=== PATIENT | female | born 1965 | race Caucasian/White ===

== ENCOUNTER 2021-07-30 01:11 | Inpatient (IN) ==
[2021-07-30] MEDS ORDERED: dexAMETHasone**PF** 10 MG/ML VIAL IV ONE (01:30)
[2021-07-30] MEDS ORDERED: SODIUM CHLORIDE 0.9% 1000ML 1,000 ML IV ONE (01:32)
[2021-07-30] MEDS ORDERED: cefTRIAXone SODIUM 2,000 MG/70 ML BAG IV STA (01:32)
[2021-07-30] MEDS ORDERED: ALBUTEROL HFA 8 GM INHALER INH ONE (01:33)
[2021-07-30] MEDS ORDERED: MAGNESIUM SULFATE / D5W 1 GM/100 ML BAG IV ONE (01:36)
[2021-07-30 01:41] LABS: Hematocrit (blood only) 38.9 % (37-47); Immature Granulocytes % (auto) 1.1 %; Lymphocytes # (auto) 0.74 K/uL (1.2-3.4); Lymphocytes % (auto) 8.1 %; Mean Corpuscular Hemoglobin 30.2 pg (25-34); Mean Corpuscular Hgb Conc 33.4 g/dL (32-36); Mean Corpuscular Volume 90.5 fL (80-100); Monocytes % (auto) 7.6 %; Neutrophils # (auto) 7.63 K/uL (1.4-6.5); Neutrophils % (auto) 83.2 %; Platelet Count 276 K/uL (130-400); RDW Coefficient of Variation 13.1 % (11.5-14.5); RDW Standard Deviation 43.5 fL (36.4-46.3); White Blood Count 9.17 K/uL (4.8-10.8)
--- NOTE | 2021-07-30 01:41 | Emergency Department Note ---
History of Present Illness General Chief complaint: Shortness of Breath/Dyspnea Stated complaint: + COVID/SHORTNESS OF BREATH Time Seen by Provider: 07/30/21 01:23 History of Present Illness Maximum Pain Intensity: 9 This 56-year-old unvaccinated female with asthma presents to the ER complaining of worsening Covid symptoms who has been sick for 10 days Location: Generalized Quality: Hard to breathe Severity: Severe Duration: Past 2 days Timing: Started few days ago Context: Symptoms got worse and patient came in Modifying factors: better with rest; worse with activity Patient states she does not smoke. Patient complains of fever, chills, cough, congestion and feeling pretty miserable. Home Medications Medication Instructions Recorded Confirmed Type Saccharomyces boulardii 250 mg 250 mg PO BID #20 cap 07/24/21 07/30/21 Rx capsule (Florastor) albuterol sulfate 90 mcg/actuation 2 puff INHALATION Q4 PRN 07/24/21 07/30/21 History aerosol inhaler cefdinir 300 mg capsule 300 mg PO BID 7 Days #14 cap 07/24/21 07/30/21 Rx dexamethasone 6 mg tablet 6 mg PO DAILY #10 tab 07/24/21 07/30/21 Rx loratadine-pseudoephedrine ER 10 1 tab PO DAILY 07/24/21 07/30/21 History mg-240 mg tablet,extended [id number] (Allergy Relief and Nasal Decongestant) montelukast 10 mg tablet 10 mg PO DAILY 07/24/21 07/30/21 History multivitamin (Multiple Vitamins) 1 tab PO DAILY 07/24/21 07/30/21 History omeprazole 40 mg capsule,delayed 40 mg PO DAILYBB 07/24/21 07/30/21 History release oxybutynin chloride 5 mg tablet 5 mg PO BID 07/24/21 07/30/21 History Allergies Allergy/AdvReac Type Severity Reaction Status Date / Time sulfamethoxazole [Bactrim] Allergy Intermediate rash and Verified 07/30/21 01:24 upset stomach trimethoprim [Bactrim] Allergy Intermediate rash and Verified 07/30/21 01:24 upset stomach Penicillins Allergy Mild Unknown Unverified 07/30/21 01:24 Past Med/Surg History Medical History Asthma GERD (gastroesophageal reflux disease) Family History Other Family history non-contributory Social History Smoking Status: Former smoker Tobacco Type: Cigarettes Preferred Language: Latvian Feels Safe at Home: Yes Review of Systems A total of 10 systems reviewed and were otherwise negative Physical Exam Vital Signs Vital Signs - 24 hr 07/30/21 01:14 07/30/21 02:10 07/30/21 02:12 Temperature 36.9 C Temperature Source Oral Pulse Rate 72 76 Pulse Rate [Apical] 70 Pulse Rate from SpO2 Sensor 75 Respiratory Rate 24 23 28 H Respiratory Effort / Characteristics Respiratory Pattern Blood Pressure 121/73 Blood Pressure [Right Arm] 132/79 Blood Pressure Mean 89 Blood Pressure Mean [Right Arm] 96 Blood Pressure Position [Right Arm] Lying Pulse Oximetry 82 L 95 94 Oxygen Delivery Method Room Air Oxymask Oxygen Flow Rate 6 Sepsis Recent Fever Within 48 Hours Yes Sepsis New/Unexplained Change in Mental Status No Sepsis Action Taken by Nursing No Action Required 07/30/21 02:30 07/30/21 02:52 07/30/21 02:57 Temperature Temperature Source Pulse Rate 73 Pulse Rate [Apical] Pulse Rate from SpO2 Sensor 73 Respiratory Rate 28 H Respiratory Effort / Characteristics Labored Short of Breath SOB on Exertion Respiratory Pattern Tachypnea Blood Pressure 134/85 Blood Pressure [Right Arm] Blood Pressure Mean 101 Blood Pressure Mean [Right Arm] Blood Pressure Position [Right Arm] Pulse Oximetry 97 95 Oxygen Delivery Method Oxymask Oxymask Oxygen Flow Rate 6 6 Sepsis Recent Fever Within 48 Hours Sepsis New/Unexplained Change in Mental Status Sepsis Action Taken by Nursing 07/30/21 03:00 07/30/21 03:25 07/30/21 03:30 Temperature Temperature Source Pulse Rate 71 89 Pulse Rate [Apical] Pulse Rate from SpO2 Sensor 71 87 Respiratory Rate 32 H 28 H Respiratory Effort / Characteristics Short of Breath SOB on Exertion Respiratory Pattern Blood Pressure 133/77 130/76 Blood Pressure [Right Arm] Blood Pressure Mean 95 94 Blood Pressure Mean [Right Arm] Blood Pressure Position [Right Arm] Pulse Oximetry 96 95 94 Oxygen Delivery Method Oxymask Oxygen Flow Rate 6 4 Sepsis Recent Fever Within 48 Hours Sepsis New/Unexplained Change in Mental Status Sepsis Action Taken by Nursing VITALS: Vitals are noted on the nurse's note and reviewed by myself. Vital signs hypoxic on room air but improved on facemask. GENERAL: White female ill-appearing working to breathe with Covid SKIN: The skin was without rashes, erythema, edema, or bruising. There is no tenting of the skin. Capillary reflex less than 2 seconds. HEAD: Normocephalic atraumatic. EARS: External auditory canals clear, tympanic membranes pearly tabor without erythema or effusion bilaterally. EYES: Pupils equal round and reactive to light and accommodation. Conjunctivae without injection, sclerae without icterus. Extraocular movements intact. NOSE: Patent, turbinates without inflammation or discharge. MOUTH: Mucous membranes moist. Pharynx without erythema or exudate. Uvula midline. Airway patent. Tongue does not deviate. NECK: Supple without nuchal rigidity. No lymphadenopathy. No thyromegaly. Cervical spine is nontender. No JVD. HEART: Regular rate and rhythm LUNGS: Mild diffuse end expiratory wheezes, No retractions or accessory muscle use. ABDOMEN: Positive bowel sounds x 4. Normal tympanic percussion. Soft, nontender, without masses or organomegaly. Boyer sign negative. No guarding or rebound tenderness. No CVA tenderness MUSCULOSKELETAL: No muscle atrophy, erythema, or edema noted. NEURO: Patient was alert and oriented to person place and time. Normal sensation to light and sharp touch. No focal neurological deficits. Course Administered Medications Discontinued Medications Albuterol (Albuterol Hfa 8 Gm Inhaler) 2 puffs INH NOW ONE Stop: 07/30/21 01:34 Last Admin: 07/30/21 02:07 Dose: 2 puffs Documented by: [id number] Dexamethasone Sodium Phosphate (DexamethasonePf 10 Mg/Ml Vial) 6 mg IV NOW ONE Stop: 07/30/21 01:31 Last Admin: 07/30/21 02:10 Dose: 6 mg Documented by: [id number] Sodium Chloride (Nss 1000ml) 1,000 mls @ 999 mls/hr IV .Q1H1M ONE Stop: 07/30/21 02:32 Last Infusion: 07/30/21 03:19 Dose: 0 mls/hr Documented by: [id number] Admin: 07/30/21 02:06 Dose: 999 mls/hr Documented by: [id number] Ceftriaxone Sodium (Rocephin) 2,000 mg in 70 mls @ 140 mls/hr IV NOW STA Stop: 07/30/21 02:01 Last Infusion: 07/30/21 02:58 Dose: 0 mls/hr Documented by: [id number] Admin: 07/30/21 02:07 Dose: 140 mls/hr Documented by: [id number] Magnesium Sulfate/Dextrose (Magnesium Sulfate / D5w) 1 gm in 100 mls @ 50 mls/hr IV ONE ONE Stop: 07/30/21 03:35 Last Admin: 07/30/21 02:08 Dose: 50 mls/hr Documented by: [id number] Potassium Chloride (Potassium Chloride Crtab 20 Meq Tabcr) 20 meq PO NOW STA Stop: 07/30/21 02:52 Last Admin: 07/30/21 03:18 Dose: 20 meq Documented by: [id number] Medical Decision Making Medical Records Attestation: I reviewed the patient's medical records. Home Medications Current Medication List: was personally reviewed by me Laboratory Data Attestation: I reviewed the patient's lab results. Result diagrams: 07/30/21 01:24 07/30/21 01:24 Lab Results 07/30/21 07/30/21 07/30/21 Range/Units 01:24 01:24 01:24 WBC 9.17 (4.8-10.8) K/uL RBC 4.30 (4.2-5.4) M/uL Hgb 13.0 (12.0-16.0) g/dL Hct 38.9 (37-47) % MCV 90.5 (80-100) fL MCH 30.2 (25-34) pg MCHC 33.4 (32-36) g/dL RDW Std Deviation 43.5 (36.4-46.3) fL RDW Coeff of Evelyn 13.1 (11.5-14.5) % Plt Count 276 (130-400) K/uL MPV 10.0 (7.4-10.4) fL Immature Gran % (Auto) 1.1 % Neut % (Auto) 83.2 % Lymph % (Auto) 8.1 % Wake % (Auto) 7.6 % Eos % (Auto) 0.0 % Baso % (Auto) 0.0 % Neut # (Auto) 7.63 H (1.4-6.5) K/uL Lymph # (Auto) 0.74 L (1.2-3.4) K/uL [place] # (Auto) 0.70 H (0.11-0.59) K/uL Eos # (Auto) 0.00 (0-0.5) K/uL Baso # (Auto) 0.00 (0-0.2) K/uL Immature Gran # (Auto) 0.10 H (0.00-0.02) K/uL PT 10.3 (9.0-12.0) Seconds INR 1.0 (0.9-1.1) APTT 28.3 (21.0-31.0) Seconds PTT Ratio 1.1 ABG pH (7.35-7.45) ABG pCO2 (35-46) mmHg ABG pO2 (80-95) mmHg ABG HCO3 (19-24) mmol/L ABG O2 Saturation (90-95) % ABG Base Excess (-9-1.8) mEq/L Federico Test (Pos) Barometric Pressure mm/Hg Oxygen Given Sodium 130 L (136-145) mmol/L Potassium 3.8 (3.5-5.1) mmol/L Chloride 96 L (98-107) mmol/L Carbon Dioxide 25 (21-32) mmol/L Anion Gap 9.0 (3-11) BUN 21 H (7-18) mg/dl Creatinine 0.90 (0.6-1.2) mg/dl Est Cr Clr Drug Dosing 78.7 ml/min Est GFR ( Amer) 81.7 ml/min Est GFR (Non-Af Amer) 70.5 ml/min BUN/Creatinine Ratio 23.2 H (10-20) Glucose 130 H (70-99) mg/dl Lactate (0.4-2.0) mmol/L Calcium 8.2 L (8.5-10.1) mg/dl Magnesium 2.2 (1.8-2.4) mg/dl Total Bilirubin 0.4 (0.2-1) mg/dl AST 43 H (15-37) U/L ALT 39 (12-78) U/L Alkaline Phosphatase 47 (45-117) U/L Troponin I < 0.015 (0-0.045) ng/ml NT-Pro-B Natriuret Pep 398 (0-900) pg/ml Total Protein 7.2 (6.4-8.2) gm/dl Albumin 2.6 L (3.4-5.0) gm/dl Globulin 4.6 H (2.5-4.0) gm/dl Albumin/Globulin Ratio 0.6 L (0.9-2) Procalcitonin (0-0.5) ng/ml TSH 0.514 (0.300-4.500) uIu/ml COVID-19 Eval Order 07/30/21 07/30/21 07/30/21 Range/Units 01:24 02:09 02:09 WBC (4.8-10.8) K/uL RBC (4.2-5.4) M/uL Hgb (12.0-16.0) g/dL Hct (37-47) % MCV (80-100) fL MCH (25-34) pg MCHC (32-36) g/dL RDW Std Deviation (36.4-46.3) fL RDW Coeff of Evelyn (11.5-14.5) % Plt Count (130-400) K/uL MPV (7.4-10.4) fL Immature Gran % (Auto) % Neut % (Auto) % Lymph % (Auto) % [place] % (Auto) % Eos % (Auto) % Baso % (Auto) % Neut # (Auto) (1.4-6.5) K/uL Lymph # (Auto) (1.2-3.4) K/uL [place] # (Auto) (0.11-0.59) K/uL Eos # (Auto) (0-0.5) K/uL Baso # (Auto) (0-0.2) K/uL Immature Gran # (Auto) (0.00-0.02) K/uL PT (9.0-12.0) Seconds INR (0.9-1.1) APTT (21.0-31.0) Seconds PTT Ratio ABG pH (7.35-7.45) ABG pCO2 (35-46) mmHg ABG pO2 (80-95) mmHg ABG HCO3 (19-24) mmol/L ABG O2 Saturation (90-95) % ABG Base Excess (-9-1.8) mEq/L Federico Test (Pos) Barometric Pressure mm/Hg Oxygen Given Sodium (136-145) mmol/L Potassium (3.5-5.1) mmol/L Chloride (98-107) mmol/L Carbon Dioxide (21-32) mmol/L Anion Gap (3-11) BUN (7-18) mg/dl Creatinine (0.6-1.2) mg/dl Est Cr Clr Drug Dosing ml/min Est GFR ( Amer) ml/min Est GFR (Non-Af Amer) ml/min BUN/Creatinine Ratio (10-20) Glucose (70-99) mg/dl Lactate 0.7 (0.4-2.0) mmol/L Calcium (8.5-10.1) mg/dl Magnesium (1.8-2.4) mg/dl Total Bilirubin (0.2-1) mg/dl AST (15-37) U/L ALT (12-78) U/L Alkaline Phosphatase (45-117) U/L Troponin I (0-0.045) ng/ml NT-Pro-B Natriuret Pep Cancelled (0-900) pg/ml Total Protein (6.4-8.2) gm/dl Albumin (3.4-5.0) gm/dl Globulin (2.5-4.0) gm/dl Albumin/Globulin Ratio (0.9-2) Procalcitonin 0.15 (0-0.5) ng/ml TSH (0.300-4.500) uIu/ml COVID-19 Eval Order 07/30/21 07/30/21 Range/Units 02:12 03:58 WBC (4.8-10.8) K/uL RBC (4.2-5.4) M/uL Hgb (12.0-16.0) g/dL Hct (37-47) % MCV (80-100) fL MCH (25-34) pg MCHC (32-36) g/dL RDW Std Deviation (36.4-46.3) fL RDW Coeff of Evelyn (11.5-14.5) % Plt Count (130-400) K/uL MPV (7.4-10.4) fL Immature Gran % (Auto) % Neut % (Auto) % Lymph % (Auto) % [place] % (Auto) % Eos % (Auto) % Baso % (Auto) % Neut # (Auto) (1.4-6.5) K/uL Lymph # (Auto) (1.2-3.4) K/uL [place] # (Auto) (0.11-0.59) K/uL Eos # (Auto) (0-0.5) K/uL Baso # (Auto) (0-0.2) K/uL Immature Gran # (Auto) (0.00-0.02) K/uL PT (9.0-12.0) Seconds INR (0.9-1.1) APTT (21.0-31.0) Seconds PTT Ratio ABG pH 7.49 H (7.35-7.45) ABG pCO2 31 L (35-46) mmHg ABG pO2 61 L (80-95) mmHg ABG HCO3 23 (19-24) mmol/L ABG O2 Saturation 92.7 (90-95) % ABG Base Excess 0.4 (-9-1.8) mEq/L Federico Test Pos (Pos) Barometric Pressure 733.9 mm/Hg Oxygen Given 6L Sodium (136-145) mmol/L Potassium (3.5-5.1) mmol/L Chloride (98-107) mmol/L Carbon Dioxide (21-32) mmol/L Anion Gap (3-11) BUN (7-18) mg/dl Creatinine (0.6-1.2) mg/dl Est Cr Clr Drug Dosing ml/min Est GFR ( Amer) ml/min Est GFR (Non-Af Amer) ml/min BUN/Creatinine Ratio (10-20) Glucose (70-99) mg/dl Lactate (0.4-2.0) mmol/L Calcium (8.5-10.1) mg/dl Magnesium (1.8-2.4) mg/dl Total Bilirubin (0.2-1) mg/dl AST (15-37) U/L ALT (12-78) U/L Alkaline Phosphatase (45-117) U/L Troponin I (0-0.045) ng/ml NT-Pro-B Natriuret Pep (0-900) pg/ml Total Protein (6.4-8.2) gm/dl Albumin (3.4-5.0) gm/dl Globulin (2.5-4.0) gm/dl Albumin/Globulin Ratio (0.9-2) Procalcitonin (0-0.5) ng/ml TSH (0.300-4.500) uIu/ml COVID-19 Eval Order Covid19 at [facility] Prescription Drug Monitoring [place] Drug Monitoring Program reviewed and no issues identified MDM Narrative Prior records/ancillary studies reviewed. Triage Nursing notes reviewed. Additional history obtained from nursing The patient's history was concerning for respiratory difficulties. Differential diagnosis: Etiologies such as infections, reactive airway disease, pneumonia, pneumothorax, COPD, CHF, cardiac ischemia, pulmonary embolism, musculoskeletal, gastrointestinal, as well as others were entertained. Physical examination: As above. ER treatment provided: An order was placed for continuous cardiac monitoring. The monitor shows a rate of 60-1 50 with a sinus rhythm. IV fluids, Rocephin, dexamethasone On reassessment the patient felt better. Diagnostic interpretation by me: The electrocardiogram was ordered for dyspnea EKG: I think arrhythmia is unlikely. EKG shows normal sinus rhythm with no interval abnormalities such as QT prolongation or WPW. There are no findings to suggest Brugada syndrome. Cardiac monitoring in the emergency department reveals no tachycardic or bradycardic dysrhythmia. Hypertrophic cardiomyopathy was considered but there are no clear historical elements pointing toward this. EKG is not suggestive. The QRS voltage is not extremely large and there are no suggestive Q waves. The labs revealed no leukocytosis Positive Covid, blood cultures pending, urine culture was reviewed Imaging studies: Chest x-ray concnerning for covid pna per my interpretation Consultation: A consultation was placed with the hospitalist. The case was discussed and diagnostics were reviewed. The patient was evaluated in the ER for further treatment. This appears to be consistent with Covid pneumonia he was hypoxic and a UTI. Patient was medicated as above. She was placed on oxygen. She did improve. She was given antibiotics for UTI. Medicine will evaluate. By the evaluation outlined above emergent etiologies such as CHF, cardiac ischemia, pulmonary embolism, reactive airway disease, pneumothorax, musculoskeletal, as well as others were deemed relatively unlikely. The pt informed about the findings as listed above. All questions were answered and pleased with the treatment. The chart was completed utilizing [employer] voice recognition software. Grammatical errors, random word insertions, pronoun errors, and incomplete sentences are an occassional consequence of this system due to software limitations, ambient noise, and hardware issues. Any formal questions or concerns about the content, text, or information contained within the body of this dictation should be directly addressed to the physician records assistant for clarification. Impression & Plan Pneumonia due to COVID-19 virus, UTI (urinary tract infection) Discharge Plan Visit Data Chief Complaint: Shortness of Breath/Dyspnea Stated Complaint: + COVID/SHORTNESS OF BREATH ED Provider: Noemi Bell ED Midlevel Provider: Kat Ames Discharge Problem: Pneumonia due to COVID-19 virus, UTI (urinary tract infection) Patient Disposition: Admitted As Inpatient Condition: Fair Forms Stand Alone Forms: [facility] Prescriptions Prescriptions: No Action omeprazole 40 mg capsule,delayed release(DR/EC) 40 mg PO DAILYBB RF: 0 albuterol sulfate 90 mcg/actuation HFA aerosol inhaler 2 puff INHALATION Q4 PRN (Reason: Shortness Of Breath Or Wheezing) RF: 0 loratadine-pseudoephedrine [Allergy Relief,Nasal Decongest] 10-240 mg tablet extended release 24 hr 1 tab PO DAILY RF: 0 montelukast 10 mg tablet 10 mg PO DAILY RF: 0 oxybutynin chloride 5 mg tablet 5 mg PO BID RF: 0 multivitamin [Multiple Vitamins] Tablet 1 tab PO DAILY RF: 0 dexamethasone 6 mg tablet 6 mg PO DAILY Qty: 10 RF: 0 cefdinir 300 mg capsule 300 mg PO BID 7 Days Qty: 14 RF: 0 Saccharomyces boulardii [Florastor] 250 mg capsule 250 mg PO BID Qty: 20 RF: 0 Referrals Referrals: Richardson Lopez MD [Primary Care Provider] -
[2021-07-30 01:51] LABS: Partial Thromboplastin Ratio 1.1; Partial Thromboplastin Time 28.3 Seconds (21.0-31.0); Prothrombin Time 10.3 Seconds (9.0-12.0)
[2021-07-30 01:59] LABS: Alanine Aminotransferase 39 U/L (12-78); Albumin Level 2.6 gm/dl (3.4-5.0); Aspartate Aminotransferase 43 U/L (15-37); BUN Creatinine Ratio 23.2 (10-20); Blood Urea Nitrogen 21 mg/dl (7-18); Calcium 8.2 mg/dl (8.5-10.1); Carbon Dioxide 25 mmol/L (21-32); Chloride 96 mmol/L (98-107); Creatinine Clr Calc Pharmacy 78.7 ml/min; Est GFR (African American) 81.7 ml/min; Est GFR (Non-African American) 70.5 ml/min; Glucose 130 mg/dl (70-99); Magnesium 2.2 mg/dl (1.8-2.4); Potassium 3.8 mmol/L (3.5-5.1); Sodium 130 mmol/L (136-145)
[2021-07-30 02:10] LABS: Albumin Globulin Ratio 0.6 (0.9-2); Alkaline Phosphatase 47 U/L (45-117); Bilirubin,Total 0.4 mg/dl (0.2-1); Globulin 4.6 gm/dl (2.5-4.0); Thyroid Stimulating Hormone 0.514 uIu/ml (0.300-4.500); Total Protein 7.2 gm/dl (6.4-8.2); Troponin I < 0.015 ng/ml (0-0.045)
--- NOTE | 2021-07-30 02:28 | History & Physical Report ---
Date of Service July 30, 2021 Assessment & Plan (1) Acute hypoxemic respiratory failure: Plan: Secondary to severe COVID-19 pneumonia Failed outpatient treatment Possible asthma exacerbation secondary to above GERD, stable on regimen prediabetes, hemoglobin A1c of 5.24 August 2020 past tobacco abuse Medical telemetry Supplemental O2 Decadron and Remdesivir for severe COVID-19 pneumonia (Patient was counseled regarding potential adverse effects from Remdesivir therapy and provided with patient education sheet.) MDI RTC Pulmonary consult if without improvement. DVT prophylaxis. Lovenox subcu Full code Text document was generated using [employer] voice recognition software. It may contain grammatical or spelling errors. Kindly contact undersigned for clarification of any documentation item in question. History of Present Illness Chief Complaint: Covid 19, worsening shortness of breath Primary Care Provider: Richardson Lopez MD History obtained from patient and records. Medical history significant for asthma, GERD, prediabetes, anxiety, past tobacco abuse. 10 days history of dry cough symptoms, fever, chills. Patient and exposed to sick neighbors with COVID-19. Both patient and have not received COVID-19 vaccination. Patient seen at the ER 6 days ago. COVID-19 test was positive. Patient not hypoxemic during ER stay. CT chest no PE. Mild to moderate multifocal groundglass opacities consistent with viral pneumonia. Patient discharged on oral Decadron and cefdinir course. Worsening symptoms despite compliance with medications. Chest pain with coughing. Patient return to the ER for evaluation. O2 sats 80s on room air. Medical History as above Surgical History : Cystoscopy, hysteroscopy, BTL, phlebectomy Family History : Asthma, colon cancer, heart disease, stroke Personal/Social history : Past tobacco abuse, occasional EtOH intake, printing work Allergies Allergy/AdvReac Type Severity Reaction Status Date / Time sulfamethoxazole [Bactrim] Allergy Intermediate rash and Verified 07/30/21 01:24 upset stomach trimethoprim [Bactrim] Allergy Intermediate rash and Verified 07/30/21 01:24 upset stomach Penicillins Allergy Mild Unknown Unverified 07/30/21 01:24 Home Medications Medication Instructions Recorded Confirmed Type Saccharomyces boulardii 250 mg 250 mg PO BID #20 cap 07/24/21 07/30/21 Rx capsule (Florastor) albuterol sulfate 90 mcg/actuation 2 puff INHALATION Q4 PRN 07/24/21 07/30/21 History aerosol inhaler cefdinir 300 mg capsule 300 mg PO BID 7 Days #14 cap 07/24/21 07/30/21 Rx dexamethasone 6 mg tablet 6 mg PO DAILY #10 tab 07/24/21 07/30/21 Rx loratadine-pseudoephedrine ER 10 1 tab PO DAILY 07/24/21 07/30/21 History mg-240 mg tablet,extended [id number] (Allergy Relief and Nasal Decongestant) montelukast 10 mg tablet 10 mg PO DAILY 07/24/21 07/30/21 History multivitamin (Multiple Vitamins) 1 tab PO DAILY 07/24/21 07/30/21 History omeprazole 40 mg capsule,delayed 40 mg PO DAILYBB 07/24/21 07/30/21 History release oxybutynin chloride 5 mg tablet 5 mg PO BID 07/24/21 07/30/21 History Past Med/Surg History Medical History Asthma GERD (gastroesophageal reflux disease) Family History Other Family history non-contributory Social History Smoking Status: Former smoker Tobacco Type: Cigarettes Preferred Language: Comoran Feels Safe at Home: Yes Assistive Devices: Oxygen - Continuous Review of Systems Review of Systems: As per HPI, all 10 systems reviewed, all other ROS negative Physical Exam Physical Exam: GENERAL: uncomfortable, wane, slightly anxious, dysphonic, obese, minimal respiratory distress SKIN: Normal color, warm HEENT: [place] palpebral conjunctivae, no ptosis, dry buccal mucosa, O2 mask in place NECK : Supple, no tenderness CHEST : Decreased breath sounds, no tenderness HEART : RRR, no obvious murmurs ABDOMEN: Some distention, nontender EXTREMITIES : Minimal LE swelling, no LE tenderness, no other conspicuous deformities noted NEUROLOGIC : Coherent, no facial asymmetry, no other gross focality Results & Data Results & Data ([facility]) Vital Signs (Past 12 Hours) Vital Signs Temp Pulse Pulse Resp BP BP Pulse Ox 07/30/21 02:12 70 28 H 132/79 94 07/30/21 01:14 36.9 C 72 24 121/73 82 L Laboratory Results Laboratory Results WBC 9.17 K/uL (4.8-10.8) 07/30/21 01:24 RBC 4.30 M/uL (4.2-5.4) 07/30/21 01:24 Hgb 13.0 g/dL (12.0-16.0) 07/30/21 01:24 Hct 38.9 % (37-47) 07/30/21 01:24 MCV 90.5 fL (80-100) 07/30/21 01:24 MCH 30.2 pg (25-34) 07/30/21 01:24 MCHC 33.4 g/dL (32-36) 07/30/21 01:24 RDW Std Deviation 43.5 fL (36.4-46.3) 07/30/21 01:24 RDW Coeff of Evelyn 13.1 % (11.5-14.5) 07/30/21 01:24 Plt Count 276 K/uL (130-400) 07/30/21 01:24 MPV 10.0 fL (7.4-10.4) 07/30/21 01:24 Immature Gran % (Auto) 1.1 % 07/30/21 01:24 Neut % (Auto) 83.2 % 07/30/21 01:24 Lymph % (Auto) 8.1 % 07/30/21 01:24 [place] % (Auto) 7.6 % 07/30/21 01:24 Eos % (Auto) 0.0 % 07/30/21 01:24 Baso % (Auto) 0.0 % 07/30/21 01:24 Neut # (Auto) 7.63 K/uL (1.4-6.5) H 07/30/21 01:24 Lymph # (Auto) 0.74 K/uL (1.2-3.4) L 07/30/21 01:24 [place] # (Auto) 0.70 K/uL (0.11-0.59) H 07/30/21 01:24 Eos # (Auto) 0.00 K/uL (0-0.5) 07/30/21 01:24 Baso # (Auto) 0.00 K/uL (0-0.2) 07/30/21 01:24 Immature Gran # (Auto) 0.10 K/uL (0.00-0.02) H 07/30/21 01:24 PT 10.3 Seconds (9.0-12.0) 07/30/21 01:24 INR 1.0 (0.9-1.1) 07/30/21 01:24 APTT 28.3 Seconds (21.0-31.0) 07/30/21 01:24 PTT Ratio 1.1 07/30/21 01:24 Sodium 130 mmol/L (136-145) L 07/30/21 01:24 Potassium 3.8 mmol/L (3.5-5.1) 07/30/21 01:24 Chloride 96 mmol/L (98-107) L 07/30/21 01:24 Carbon Dioxide 25 mmol/L (21-32) 07/30/21 01:24 Anion Gap 9.0 (3-11) 07/30/21 01:24 BUN 21 mg/dl (7-18) H 07/30/21 01:24 Creatinine 0.90 mg/dl (0.6-1.2) 07/30/21 01:24 Est Cr Clr Drug Dosing 78.7 ml/min 07/30/21 01:24 Est GFR ( Amer) 81.7 ml/min 07/30/21 01:24 Est GFR (Non-Af Amer) 70.5 ml/min 07/30/21 01:24 BUN/Creatinine Ratio 23.2 (10-20) H 07/30/21 01:24 Glucose 130 mg/dl (70-99) H 07/30/21 01:24 Calcium 8.2 mg/dl (8.5-10.1) L 07/30/21 01:24 Magnesium 2.2 mg/dl (1.8-2.4) 07/30/21 01:24 Total Bilirubin 0.4 mg/dl (0.2-1) 07/30/21 01:24 AST 43 U/L (15-37) H 07/30/21 01:24 ALT 39 U/L (12-78) 07/30/21 01:24 Alkaline Phosphatase 47 U/L (45-117) 07/30/21 01:24 Troponin I < 0.015 ng/ml (0-0.045) 07/30/21 01:24 NT-Pro-B Natriuret Pep Cancelled 07/30/21 02:09 Total Protein 7.2 gm/dl (6.4-8.2) 07/30/21 01:24 Albumin 2.6 gm/dl (3.4-5.0) L 07/30/21 01:24 Globulin 4.6 gm/dl (2.5-4.0) H 07/30/21 01:24 Albumin/Globulin Ratio 0.6 (0.9-2) L 07/30/21 01:24 Procalcitonin 0.15 ng/ml (0-0.5) 07/30/21 01:24 TSH 0.514 uIu/ml (0.300-4.500) 07/30/21 01:24 Diagnostic Findings Chest x-ray as per my interpretation multifocal infiltrates progressive from 07/24 film EKG as per my interpretation : Rate 70, NSR, LAD, LAFB, LVH, T wave abnormalities inferior leads
[2021-07-30 02:29] LABS: Base Excess ABG 0.4 mEq/L (-9-1.8); HCO3 ABG 23 mmol/L (19-24); Oxygen Saturation ABG 92.7 % (90-95); PCO2 ABG 31 mmHg (35-46); PO2 ABG 61 mmHg (80-95); pH ABG 7.49 (7.35-7.45)
[2021-07-30 02:32] LABS: NT Pro B Type Natriuretic Pept 398 pg/ml (0-900)
[2021-07-30 02:33] LABS: Allen Test Pos (Pos)
[2021-07-30] MEDS ORDERED: REMDESIVIR 200 MG in SODIUM CHLORIDE 0.9% 210 ML IV STA (02:33)
[2021-07-30] MEDS ORDERED: POTASSIUM CHLORIDE CRTAB 20 MEQ TABCR PO STA (02:51)
[2021-07-30] MEDS ORDERED: oxyCODONE HCL IR 5 MG TAB (IMMEDIATE RELEASE) PO PRN (06:50)
[2021-07-30] MEDS ORDERED: PROMETHAZINE HCL 12.5 MG in SODIUM CHLORIDE 0.9% 50 ML IV PRN (06:50)
[2021-07-30] MEDS ORDERED: ACETAMINOPHEN 325 MG TAB PO PRN (06:50)
[2021-07-30] MEDS: SODIUM CHLORIDE 0.9% 10ML FLUSH IV SCH ×2 (07:04→20:59)
[2021-07-30] MEDS: PANTOprazole 40 MG TAB PO SCH (07:22)
--- NOTE | 2021-07-30 07:24 | XRay Report ---
XR chest 1V portable HISTORY: 56 years-old Female SEPSIS acute sepsis COMPARISON: Chest radiograph and CT chest 07/24/2021 TECHNIQUE: Portable AP view of the chest FINDINGS: Cardiac mediastinal and hilar silhouettes are unchanged. Calcified plaque of the thoracic aorta. No p neumothorax or large pleural effusion. Progressively worsened right greater left bilateral patchy air space opacities. Degenerative changes of the shoulders and spine. IMPRESSION: Progressively worsened right greater than left ill-defined bilateral airspace opacities c ompatible with multifocal pneumonia. ACT 112: Negative or not required by law. The above report was generated using voice recognition software. It may contain grammatical, syntax o r spelling errors. Electronically signed by: Omer Sorensen M.D. 07/30/2021 7:23 AM
[2021-07-30 07:31] LABS: Appearance Urine Cloudy (Clear); Bacteria Urine Automated Negative (Negative); Bilirubin Urine Negative (Negative); Blood Urine Trace (Negative); Color Urine Dark Yellow; Epithelial Cell Urine Auto >30 /lpf (0-5); Glucose Urine UA Negative (Negative); Ketones Urine Trace (Negative); Leukocyte Esterase Urine Trace (Negative); Nitrite Urine Negative (Negative); Protein Urine 1+ (Negative); Specific Gravity Urine 1.023 (1.000-1.030); Urobilinogen Urine Negative (Negative); pH Urine 5.5 (4.5-7.5)
[2021-07-30 07:31] LABS: Estimated Average Glucose 134 mg/dl; Hemoglobin A1C 6.3 % (4.5-5.6)
[2021-07-30 07:50] LABS: RBC Urine Automated 0-4 /hpf (0-4)
[2021-07-30 07:51] LABS: Cast Urine Automated >30 /lpf (0-5); Granular Casts Urine 20-30 /lpf (0)
[2021-07-30] MEDS: ENOXAPARIN INJ 40 MG/0.4 ML SYR SQ SCH (09:13)
[2021-07-30] MEDS: MONTELUKAST SODIUM 10 MG TABLET PO SCH (09:14)
[2021-07-30] MEDS: OXYBUTYNIN CHLORIDE 5 MG TAB PO SCH ×2 (09:14→20:36)
[2021-07-30] MEDS: MULTIVITAMIN TAB PO SCH (09:14)
[2021-07-30] MEDS: SACCHAROMYCES BOULARDII 250 MG CAP PO SCH ×2 (09:14→20:35)
[2021-07-30] MEDS: ALBUTEROL HFA 8 GM INHALER INH SCH ×4 (09:18→19:47)
--- NOTE | 2021-07-30 15:39 | Electrocardiogram Report ---
Test Reason : Blood Pressure : / mmHG Vent. Rate : 072 BPM Atrial Rate : 072 BPM P-R Int : 140 ms QRS Dur : 082 ms QT Int : 430 ms P-R-T Axes : 045 000 022 degrees QTc Int : 470 ms Normal sinus rhythm Right atrial enlargement Voltage criteria for left ventricular hypertrophy Nonspecific T wave abnormality Prolonged QT Abnormal ECG When compared with ECG of 24-JUL-2021 20:24, T wave inversion less evident in Inferior leads Confirmed by Jah Seo ([id number]) on 07/30/2021 3:38:52 PM Referred By: REFERRED SELF Confirmed By:Jah Seo
--- NOTE | 2021-07-30 16:26 | Hospitalist Progress Note ---
Date of Service July 30, 2021 Assessment & Plan (1) Acute hypoxemic respiratory failure: Plan: Present on admission with worsening SOB Testing positive for COVID 19 Patient was not vaccinated Symptoms have been going on for more than 10 days CXR showed Progressively worsened right greater than left ill-defined bilateral airspace opacities compatible with multifocal pneumonia. Received dexamethasone IV 6 mg in the ER Continue with dexamethasone 6 mg IV daily and remdesivir Continue monitor LFT while on Remdesivir Will monitor inflammatory marker Normal Procalcitonin and lactic acid Blood cx no growth Continue supportive care with nebs, flutter valve, incentive spirometer Encourage pt to prone Continue oxygen high flow supplement Might consider pulm consult if symptoms worsening DVT prophylaxis. Lovenox subcu Full code (2) Pneumonia due to COVID-19 virus: Admission and Anticipated Discharge Date Admission Date: July 30, 2021 Subjective Pt was seen and examined for follow up of SOB due to COVID 19 Lying in bed with acute respiratory distress Pt said that she is having difficulty to breath Currently on oxygen supplement with 12L NC Denies any chest pain and fever Review of Systems Review of Systems: All systems reviewed & are unremarkable except as noted in Subjective Physical Exam Physical Exam: General- No acute distress Head- atraumatic Eyes- PERRL, EOMI, ENT- oropharynx clear Neck- supple, no JVD Lungs- diminished BS Heart- regular rhythm; no murmur Abdomen- normal bowel sounds, soft, nontender Extremities- no calf tenderness Neuro- alert, oriented x 3; PERRL, EOMI; no facial palsy; no dysarthria Skin- warm & dry Results & Data Results & Data ([facility]) Vital Signs (Past 12 Hours) Vital Signs Temp Pulse Pulse Resp BP BP Pulse Ox 07/30/21 16:10 36.4 C L 74 20 123/66 95 07/30/21 12:13 36.5 C 72 24 130/83 93 07/30/21 12:05 63 26 H 92 07/30/21 10:00 73 07/30/21 08:29 36.4 C L 73 22 130/74 93 07/30/21 06:55 36.8 C 72 22 130/81 89 L 07/30/21 06:54 07/30/21 05:30 127/75 97 07/30/21 04:54 36.9 C 07/30/21 04:30 72 31 H 132/79 90 Pulse Ox 07/30/21 16:10 07/30/21 12:13 07/30/21 12:05 07/30/21 10:00 07/30/21 08:29 07/30/21 06:55 07/30/21 06:54 89 L 07/30/21 05:30 07/30/21 04:54 07/30/21 04:30
[2021-07-30] MEDS: REMDESIVIR 100 MG in SODIUM CHLORIDE 0.9% 230 ML IV SCH (19:47)
[2021-07-31] MEDS: ALBUTEROL HFA 8 GM INHALER INH SCH ×3 (06:10→16:13)
[2021-07-31] MEDS: PANTOprazole 40 MG TAB PO SCH (06:10)
[2021-07-31 06:49] LABS: Hematocrit (blood only) 36.8 % (37-47); Hemoglobin 11.8 g/dL (12.0-16.0); Immature Granulocytes # (auto) 0.11 K/uL (0.00-0.02); Lymphocytes # (auto) 1.07 K/uL (1.2-3.4); Lymphocytes % (auto) 9.8 %; Mean Corpuscular Hemoglobin 29.6 pg (25-34); Mean Corpuscular Hgb Conc 32.1 g/dL (32-36); Mean Corpuscular Volume 92.2 fL (80-100); Mean Platelet Volume 9.8 fL (7.4-10.4); Monocytes # (auto) 0.91 K/uL (0.11-0.59); Monocytes % (auto) 8.3 %; Neutrophils # (auto) 8.88 K/uL (1.4-6.5); Neutrophils % (auto) 80.9 %; Platelet Count 263 K/uL (130-400); RDW Coefficient of Variation 13.2 % (11.5-14.5); RDW Standard Deviation 44.4 fL (36.4-46.3); Red Blood Count 3.99 M/uL (4.2-5.4); White Blood Count 10.97 K/uL (4.8-10.8)
[2021-07-31 07:14] LABS: BUN Creatinine Ratio 22.1 (10-20); Calcium 7.9 mg/dl (8.5-10.1); Creatinine Clr Calc Pharmacy 99.3 ml/min; Est GFR (African American) 108.8 ml/min; Est GFR (Non-African American) 93.9 ml/min; Potassium 4.2 mmol/L (3.5-5.1)
[2021-07-31] MEDS ORDERED: FUROSEMIDE 20 MG in SYRINGE 0 ML IV ONE (07:51)
[2021-07-31] MEDS ORDERED: FUROSEMIDE 40 MG/4 ML VIAL IV SCH (08:00)
[2021-07-31] MEDS ORDERED: FUROSEMIDE 40 MG/4 ML VIAL IV ONE (08:00)
[2021-07-31] MEDS: dexAMETHasone 6 MG in SYRINGE 0 ML IV SCH (08:30)
[2021-07-31] MEDS: SACCHAROMYCES BOULARDII 250 MG CAP PO SCH ×2 (08:32→19:45)
[2021-07-31] MEDS: ENOXAPARIN INJ 40 MG/0.4 ML SYR SQ SCH (08:32)
[2021-07-31] MEDS: MONTELUKAST SODIUM 10 MG TABLET PO SCH (08:32)
[2021-07-31] MEDS: MULTIVITAMIN TAB PO SCH (08:32)
[2021-07-31] MEDS: OXYBUTYNIN CHLORIDE 5 MG TAB PO SCH ×2 (08:32→19:45)
[2021-07-31] MEDS ORDERED: ALBUTEROL HFA 8 GM INHALER INH PRN (15:18)
--- NOTE | 2021-07-31 19:08 | Hospitalist Progress Note ---
Date of Service July 31, 2021 Assessment & Plan (1) Acute hypoxemic respiratory failure: Plan: Present on admission with worsening SOB Testing positive for COVID 19 Patient was not vaccinated Symptoms have been going on for more than 10 days CXR showed Progressively worsened right greater than left ill-defined bilateral airspace opacities compatible with multifocal pneumonia. Received dexamethasone IV 6 mg in the ER Continue with dexamethasone 6 mg IV daily and remdesivir Continue monitor LFT while on Remdesivir Will check inflammatory marker Normal Procalcitonin and lactic acid Blood cx no growth Continue supportive care with nebs, flutter valve, incentive spirometer Encourage pt to prone Continue oxygen high flow supplement Might consider pulm consult if symptoms worsening DVT prophylaxis. Lovenox subcu Full code (2) Pneumonia due to COVID-19 virus: Admission and Anticipated Discharge Date Admission Date: July 30, 2021 Subjective Pt was seen and examined for follow up of SOB due to COVID 19 Lying in bed with acute respiratory distress Continue requiring high flow oxygen Denies any chest pain, fever, palpitation and fever Review of Systems Review of Systems: All systems reviewed & are unremarkable except as noted in Subjective Physical Exam Physical Exam: General- No acute distress Head- atraumatic Eyes- PERRL, EOMI, ENT- oropharynx clear Neck- supple, no JVD Lungs- diminished BS Heart- regular rhythm; no murmur Abdomen- normal bowel sounds, soft, nontender Extremities- no calf tenderness Neuro- alert, oriented x 3; PERRL, EOMI; no facial palsy; no dysarthria Skin- warm & dry Results & Data Results & Data ([facility]) Vital Signs (Past 12 Hours) Vital Signs Temp Pulse Pulse Resp BP Pulse Ox 07/31/21 15:33 36.8 C 58 L 20 118/71 95 07/31/21 15:26 58 L 07/31/21 15:01 67 18 92 07/31/21 12:24 59 L 31 H 07/31/21 11:46 61 32 H 88 L 07/31/21 10:59 36.5 C 62 19 101/53 L 95 07/31/21 08:00 69 07/31/21 07:45 64 24 91
[2021-07-31] MEDS: REMDESIVIR 100 MG in SODIUM CHLORIDE 0.9% 230 ML IV SCH (19:42)
[2021-07-31] MEDS: SODIUM CHLORIDE 0.9% 10ML FLUSH IV SCH (20:50)
[2021-08-01] MEDS: PANTOprazole 40 MG TAB PO SCH (05:19)
[2021-08-01] MEDS: dexAMETHasone 6 MG in SYRINGE 0 ML IV SCH (08:24)
[2021-08-01] MEDS: ENOXAPARIN INJ 40 MG/0.4 ML SYR SQ SCH (08:24)
[2021-08-01] MEDS: MONTELUKAST SODIUM 10 MG TABLET PO SCH (08:24)
[2021-08-01] MEDS: MULTIVITAMIN TAB PO SCH (08:24)
[2021-08-01] MEDS: SACCHAROMYCES BOULARDII 250 MG CAP PO SCH ×2 (08:24→20:26)
[2021-08-01] MEDS: OXYBUTYNIN CHLORIDE 5 MG TAB PO SCH ×2 (08:24→20:26)
[2021-08-01] MEDS ORDERED: cefTRIAXone SODIUM 1,000 MG in DEXTROSE 5% 50 ML IV SCH (08:30)
[2021-08-01 09:01] LABS: Albumin Level 2.1 gm/dl (3.4-5.0); BUN Creatinine Ratio 22.7 (10-20); C Reactive Protein 6.15 mg/dl (0-0.29); Calcium 7.6 mg/dl (8.5-10.1); Creatinine Clr Calc Pharmacy 101.6 ml/min; Est GFR (African American) 110.7 ml/min; Est GFR (Non-African American) 95.5 ml/min; Potassium 3.6 mmol/L (3.5-5.1)
[2021-08-01 09:06] LABS: Albumin Globulin Ratio 0.5 (0.9-2); Bilirubin,Total 0.3 mg/dl (0.2-1); Ferritin 628.4 ng/ml (8-388); Total Protein 6.1 gm/dl (6.4-8.2)
[2021-08-01] MEDS: cefTRIAXone SODIUM 2,000 MG in DEXTROSE 5% 50 ML IV SCH (10:11)
--- NOTE | 2021-08-01 12:41 | Pulmonary Consultation ---
Date of Consultation August 01, 2021 Assessment & Plan (1) Acute hypoxemic respiratory failure: (2) Pneumonia due to COVID-19 virus: Patient does not qualify for tocilizumab therapy at this time as her CRP is only 6.15. Continue Decadron therapy for total of 10 days. Consider increasing Decadron to 6 mg twice daily for 2 to 3 days then decreasing back to 6 mg once daily. Remdesivir likely of little value at this time given that she is roughly 10 to 14 days out from acute infection. Recommend maintaining a euvolemic to slightly negative fluid balance given her ARDS-like picture. I suspect that she will likely have a prolonged hospital course with prolonged weaning of supplemental oxygen. No indication for antibiotics at this time. White count and procalcitonin unremarkable. Patient afebrile. No discrete consolidation seen on chest x-ray. Self and awake proning highly encouraged. CPAP can be utilized for breakthrough shortness of breath and worsening hypoxemia. No evidence of acute asthma exacerbation. Pulmonary will sign off at this time. Please call with questions. I'm certainly available from an ICU perspective should the need arise. She does have a high risk of decompensating and requiring mechanical ventilation. Case discussed with hospitalist, Dr. Lao. History of Present Illness Reason for Consultation: COVID-19 viral pneumonia and acute hypoxemic respiratory failure Attending Physician: Shilo Santos MD History of Present Illness 56-year-old female with a past medical history of obesity (BMI 36), asthma on Advair and albuterol who presented to the hospital originally on 07/24/2021 due to COVID-19 symptoms. She was discharged home presented again 07/18. He is roughly 10 to 14 days out from initial symptoms. She had increasing shortness of breath and cough. She is unvaccinated. She is currently on 70% FiO2 and 40 L of high flow nasal cannula. She relates that she tried to self proning, but was intolerant of it due to pain. She denies any fevers or chills at present. She did does have congestion and wheezing. She notes that she has a history of chronic asthma and is on high doses of Advair. She was in the hospital a few years ago for pneumonia, but otherwise she has avoided any significant asthma exacerbations as of late. She notes she smoked cigarettes roughly 30 years ago. She is current on 6 mg of Decadron daily and remdesivir 100 mg daily. She is on ceftriaxone 2 g daily for concern of a urinary tract infection. No leukocytosis seen on CBC. ABG from the demonstrated respiratory alkalosis with hypoxemia on 6 L of oxygen. PO2 was 61. Chest x-ray completed on the demonstrated right greater than left bilateral airspace opacities. Chest CTA 07/24/2021 with mild to moderate multifocal groundglass opacities. No pulmonary embolism. Reactive hilar nodes noted. Her CRP level is elevated to 6.15 mg/dL. P rocalcitonin was within normal limits on admission. Allergies Allergy/AdvReac Type Severity Reaction Status Date / Time sulfamethoxazole [Bactrim] Allergy Intermediate rash and Verified 07/30/21 01:24 upset stomach trimethoprim [Bactrim] Allergy Intermediate rash and Verified 07/30/21 01:24 upset stomach Penicillins Allergy Mild Unknown Unverified 07/30/21 01:24 Home Medications Medication Instructions Recorded Confirmed Type Saccharomyces boulardii 250 mg 250 mg PO BID #20 cap 07/24/21 07/30/21 Rx capsule (Florastor) albuterol sulfate 90 mcg/actuation 2 puff INHALATION Q4 PRN 07/24/21 07/30/21 History aerosol inhaler cefdinir 300 mg capsule 300 mg PO BID 7 Days #14 cap 07/24/21 07/30/21 Rx dexamethasone 6 mg tablet 6 mg PO DAILY #10 tab 07/24/21 07/30/21 Rx loratadine-pseudoephedrine ER 10 1 tab PO DAILY 07/24/21 07/30/21 History mg-240 mg tablet,extended [id number] (Allergy Relief and Nasal Decongestant) montelukast 10 mg tablet 10 mg PO DAILY 07/24/21 07/30/21 History multivitamin (Multiple Vitamins) 1 tab PO DAILY 07/24/21 07/30/21 History omeprazole 40 mg capsule,delayed 40 mg PO DAILYBB 07/24/21 07/30/21 History release oxybutynin chloride 5 mg tablet 5 mg PO BID 07/24/21 07/30/21 History Patient History Medical History Asthma GERD (gastroesophageal reflux disease) Family History Other Family history non-contributory Social History Smoking Status: Former smoker Tobacco Type: Cigarettes Hx Alcohol Use: Yes Alcohol type: hard liquor Hx Substance Use: No Preferred Language: Citizen Of [place] Communication Ability: Effective Information Assoc Required: No Beliefs That Will Affect Care: None Current Living Situation: Spouse Other Information That Helps Us Care for You: No Feels Safe at Home: Yes Safety Concerns: Feels Safe At This Time Assistive Devices: None Review of Systems Review of Systems: All systems reviewed & are unremarkable except as noted in HPI & below Physical Exam Physical Exam: Constitutional: Patient appears lethargic. Sitting up in bed. Nasal cannula in place. Eyes: Pupils are equal round and reactive to light. Conjunctivae are normal. Anicteric sclera. Ears nose, mouth and throat: No obvious deformities. Neck: Trachea is midline. Visual inspection is normal. Respiratory: Diminished lung sounds bilaterally. No wheezes appreciated. Mild tachypnea. Cardiovascular: Regular rate and rhythm. No murmurs. No edema. Gastrointestinal: Normal bowel sounds, soft, nontender and nondistended. No hepatosplenomegaly noted. Musculoskeletal: No cyanosis. Patient is able to move all extremities. Strength is 5 out of 5 in the upper and lower extremities. Skin: No rashes, warm dry and intact. Neurologic: No obvious focal neurological deficits seen. Psychiatric: Alert and oriented x3 with a euthymic affect. Results & Data Results & Data ([facility]) Vital Signs (Past 12 Hours) Vital Signs Temp Pulse Pulse Resp BP Pulse Ox 08/01/21 11:16 99.1 F 52 L 20 128/65 98 08/01/21 10:59 57 L 20 95 08/01/21 07:49 56 L 18 97 08/01/21 07:46 57 L 08/01/21 07:18 98.4 F 60 19 114/71 99 08/01/21 04:35 99.7 F H 60 18 107/60 93 08/01/21 03:48 54 L 26 H 94 Vital signs, labs and imaging personally reviewed PG Care Time/CCT Total # of Minutes Spent Total Time Spent with Patient: Total time spent is greater than 50% in coordination of care (as documented) at patient's floor/unit and/or counseling patient: Coding Level of Care Code 77773 Inpt Consult Level 4 Diagnoses Acute hypoxemic respiratory failure J96.01 Pneumonia due to COVID-19 virus U07.1; J12.82
--- NOTE | 2021-08-01 16:39 | Hospitalist Progress Note ---
Date of Service August 01, 2021 Assessment & Plan (1) Acute hypoxemic respiratory failure: Plan: Present on admission with worsening SOB Testing positive for COVID 19 Patient was not vaccinated Symptoms have been going on for more than 10 days CXR showed Progressively worsened right greater than left ill-defined bilateral airspace opacities compatible with multifocal pneumonia. Pt was dexamethasone 6 mg IV daily and remdesivir Continue monitor LFT while on Remdesivir Will check inflammatory marker Normal Procalcitonin and lactic acid Blood cx no growth Continue supportive care with nebs, flutter valve, incentive spirometer Encourage pt to prone Continue oxygen high flow supplement Pulmonology on board Patient does not qualify for tocilizumab therapy at this time as her CRP is only 6.15. Pulmonology recommend to increase dexamethasone to 6 mg twice daily for the next 2 to 3 days Will give lasix 20mg x1 today Continue monitor closely DVT prophylaxis. Lovenox subcu Full code (2) Pneumonia due to COVID-19 virus: Admission and Anticipated Discharge Date Admission Date: July 30, 2021 Subjective Pt was seen and examined for follow up of SOB due to COVID 19 Lying in bed with acute respiratory distress Continue requiring high flow oxygen Denies any chest pain, fever, palpitation and fever Review of Systems Review of Systems: All systems reviewed & are unremarkable except as noted in Subjective Physical Exam Physical Exam: General- No acute distress Head- atraumatic Eyes- PERRL, EOMI, ENT- oropharynx clear Neck- supple, no JVD Lungs- diminished BS Heart- regular rhythm; no murmur Abdomen- normal bowel sounds, soft, nontender Extremities- no calf tenderness Neuro- alert, oriented x 3; PERRL, EOMI; no facial palsy; no dysarthria Skin- warm & dry Results & Data Results & Data ([facility]) Vital Signs (Past 12 Hours) Vital Signs Temp Pulse Pulse Resp BP Pulse Ox 08/01/21 14:52 36.9 C 70 20 106/56 L 94 08/01/21 14:42 82 20 93 08/01/21 14:16 64 08/01/21 11:16 37.3 C 52 L 20 128/65 98 08/01/21 10:59 57 L 20 95 08/01/21 07:49 56 L 18 97 08/01/21 07:46 57 L 08/01/21 07:18 36.9 C 60 19 114/71 99
[2021-08-01] MEDS: REMDESIVIR 100 MG in SODIUM CHLORIDE 0.9% 230 ML IV SCH (19:40)
[2021-08-01] MEDS: SODIUM CHLORIDE 0.9% 10ML FLUSH IV SCH (20:26)
[2021-08-02] MEDS: dexAMETHasone 6 MG in SYRINGE 0 ML IV SCH ×3 (00:35→21:41)
[2021-08-02] MEDS: PANTOprazole 40 MG TAB PO SCH (05:00)
[2021-08-02] MEDS: cefTRIAXone SODIUM 2,000 MG in DEXTROSE 5% 50 ML IV SCH (08:33)
[2021-08-02] MEDS: MULTIVITAMIN TAB PO SCH (08:37)
[2021-08-02] MEDS: SACCHAROMYCES BOULARDII 250 MG CAP PO SCH ×2 (08:37→21:42)
[2021-08-02] MEDS: OXYBUTYNIN CHLORIDE 5 MG TAB PO SCH ×2 (08:37→21:42)
[2021-08-02] MEDS: MONTELUKAST SODIUM 10 MG TABLET PO SCH (08:37)
[2021-08-02] MEDS: ENOXAPARIN INJ 40 MG/0.4 ML SYR SQ SCH (08:37)
[2021-08-02 08:38] LABS: Albumin Globulin Ratio 0.6 (0.9-2); Albumin Level 2.1 gm/dl (3.4-5.0); BUN Creatinine Ratio 21.3 (10-20); Bilirubin,Total 0.4 mg/dl (0.2-1); C Reactive Protein 4.37 mg/dl (0-0.29); Calcium 8.1 mg/dl (8.5-10.1); Creatinine Clr Calc Pharmacy 106.4 ml/min; Est GFR (African American) 112.9 ml/min; Est GFR (Non-African American) 97.4 ml/min; Ferritin 456.5 ng/ml (8-388); Globulin 3.6 gm/dl (2.5-4.0); Potassium 4.4 mmol/L (3.5-5.1); Total Protein 5.7 gm/dl (6.4-8.2)
[2021-08-02] MEDS ORDERED: FUROSEMIDE 40 MG in SYRINGE 0 ML IV ONE (15:33)
--- NOTE | 2021-08-02 15:33 | Hospitalist Progress Note ---
Date of Service August 02, 2021 Assessment & Plan (1) Acute hypoxemic respiratory failure: Plan: Present on admission with worsening SOB Testing positive for COVID 19 on 07/24/2021 and also on 07/30/2021 with worsening symptoms Patient was not vaccinated Symptoms have been going on for more than 10 days CXR showed Progressively worsened right greater than left ill-defined bilateral airspace opacities compatible with multifocal pneumonia. Pt was dexamethasone 6 mg IV daily and remdesivir Continue monitor LFT while on Remdesivir Normal Procalcitonin and lactic acid CRP level was not terribly high-6.15 and then decreased to 4.37 as of 08/02/2021 Blood cx no growth Continue supportive care with nebs, flutter valve, incentive spirometer Encourage pt to prone Pulmonology on board-appreciate input and recommendation Patient does not qualify for tocilizumab therapy at this time as her CRP is only 6.15. Pulmonology recommend to increase dexamethasone to 6 mg twice daily for the next 2 to 3 days Will give Lasix 40 mg today Clinically better but symptomatically not yet DVT prophylaxis. Lovenox subcu Full code (2) Pneumonia due to COVID-19 virus: Plan: As above Admission and Anticipated Discharge Date Admission Date: July 30, 2021 Subjective 08/02/2021 The patient was seen and examined in telemetry unit and in the Covid room She has been requiring high flow oxygen to maintain saturation Has been conversing normally with mild to moderate shortness of breath at rest Denies any abdominal pain, nausea and or vomiting Review of Systems Review of Systems: All systems reviewed and are unremarkable except as noted below Respiratory: Moderate shortness of breath at rest with cough Physical Exam Physical Exam: Lying in bed with moderate shortness of breath at rest Constitutional: well developed, well nourished, + ill appearing and + obese Eyes: PERRL, conjunctivae normal, anicteric sclerae ENMT: external ear and nose normal, oropharynx normal Neck: trachea midline, no thyromegaly Respiratory: + respiratory distress, + labored breathing, + uses accessory muscles and + cough Auscultation: + diminished lung sounds, + crackles and + wheezes Cardiovascular: Rate/Rhythm: regular rate and regular rhythm; not tachycardic Heart Sounds: normal S1 and normal S2; no murmur Extremities: + edema (Trace edema bilateral) Gastrointestinal (Abdomen): Inspection/Auscultation: normal bowel sounds; abdomen not distended Percussion/Palpation: abdomen soft; abdomen nontender Musculoskeletal: No acute arthritis in any joint Neurologic: Alert, awake and oriented x3 Results & Data Results & Data ([facility]) Vital Signs (Past 12 Hours) Vital Signs Temp Pulse Pulse Resp BP Pulse Ox 08/02/21 15:06 96 08/02/21 15:05 37.3 C 58 L 20 159/80 H 94 08/02/21 11:40 37.0 C 54 L 24 131/87 96 08/02/21 08:20 82 18 92 08/02/21 07:32 54 L 08/02/21 07:11 36.9 C 62 20 126/70 96 Laboratory Results [facility] 08/02/21 07:27 Sodium 135 L Potassium 4.4 D Chloride 103 Carbon Dioxide 25 BUN 14 Creatinine 0.66 Glucose 133 H Calcium 8.1 L Liver Function 08/02/21 Range/Units 07:27 Total Bilirubin 0.4 (0.2-1) mg/dl AST 22 (15-37) U/L ALT 49 (12-78) U/L Alkaline Phosphatase 42 L (45-117) U/L Albumin 2.1 L (3.4-5.0) gm/dl Medications Administered Current Inpatient Medications Acetaminophen (Acetaminophen 325 Mg Tab) 650 mg PO Q4H PRN PRN Reason: Pain or Fever Stop: 08/29/21 06:49 Last Admin: 08/01/21 04:48 Dose: 650 mg Documented by: Albuterol (Albuterol Hfa 8 Gm Inhaler) 2 puffs INH Q4H PRN PRN Reason: Shortness Of Breath Or Wheezin Stop: 08/30/21 15:17 Enoxaparin Sodium (Enoxaparin Inj 40 Mg/0.4 Ml Syr) 40 mg SQ QAM GINO Stop: 08/29/21 08:59 Last Admin: 08/02/21 08:37 Dose: 40 mg Documented by: Remdesivir 100 mg/ Sodium (Chloride) 250 mls @ 250 mls/hr IV Q24H GINO; Protocol Stop: 08/02/21 20:59 Last Infusion: 08/01/21 20:40 Dose: Infused Documented by: Promethazine HCl 12.5 mg/ (Sodium Chloride) 50.5 mls @ 202 mls/hr IV Q6H PRN PRN Reason: Nausea And Vomiting Stop: 08/29/21 06:49 Ceftriaxone Sodium 2,000 mg/ (Dextrose) 70 mls @ 140 mls/hr IV Q24H [facility]; Protocol Stop: 08/06/21 08:59 Last Infusion: 08/02/21 09:59 Dose: Infused Documented by: Dexamethasone 6 mg/ Syringe 1.5 mls @ 1 mls/min IV BID GINO Stop: 09/01/21 00:00 Last Admin: 08/02/21 08:36 Dose: 1 mls/min Documented by: Montelukast Sodium (Montelukast Sodium 10 Mg Tablet) 10 mg PO DAILY GINO Stop: 08/29/21 08:59 Last Admin: 08/02/21 08:37 Dose: 10 mg Documented by: Multivitamins (Multivitamin Tab) 1 tab PO DAILY GINO Stop: 08/29/21 08:59 Last Admin: 08/02/21 08:37 Dose: 1 tab Documented by: Oxybutynin Chloride (Oxybutynin Chloride 5 Mg Tab) 5 mg PO BID GINO Stop: 08/29/21 08:59 Last Admin: 08/02/21 08:37 Dose: 5 mg Documented by: Oxycodone HCl (Oxycodone Hcl Ir 5 Mg Tab (Immediate Release)) 5 mg PO Q4H PRN PRN Reason: Pain Stop: 08/13/21 06:49 Last Admin: 07/31/21 02:04 Dose: 5 mg Documented by: Pantoprazole Sodium (Pantoprazole 40 Mg Tab) 40 mg PO DAILYBB GINO Stop: 08/29/21 06:49 Last Admin: 08/02/21 05:00 Dose: 40 mg Documented by: Saccharomyces Boulardii (Saccharomyces Boulardii 250 Mg Cap) 250 mg PO BID GINO Stop: 08/29/21 08:59 Last Admin: 08/02/21 08:37 Dose: 250 mg Documented by: Sodium Chloride (Sodium Chloride 0.9% 10ml Flush) 30 ml IV Q24H [facility] Stop: 08/03/21 07:01 Last Admin: 08/01/21 20:26 Dose: 30 ml Documented by:
[2021-08-02] MEDS ORDERED: FUROSEMIDE 40 MG/4 ML VIAL IV ONE (15:45)
[2021-08-02] MEDS: REMDESIVIR 100 MG in SODIUM CHLORIDE 0.9% 230 ML IV SCH (20:30)
[2021-08-02] MEDS: SODIUM CHLORIDE 0.9% 10ML FLUSH IV SCH (21:40)
[2021-08-03] MEDS: PANTOprazole 40 MG TAB PO SCH (05:43)
[2021-08-03 07:19] LABS: Basophils # (auto) 0.01 K/uL (0-0.2); Basophils % (auto) 0.1 %; Eosinophils # (auto) 0.01 K/uL (0-0.5); Eosinophils % (auto) 0.1 %; Hematocrit (blood only) 35.7 % (37-47); Hemoglobin 11.6 g/dL (12.0-16.0); Immature Granulocytes # (auto) 0.13 K/uL (0.00-0.02); Immature Granulocytes % (auto) 0.9 %; Lymphocytes # (auto) 0.76 K/uL (1.2-3.4); Lymphocytes % (auto) 5.3 %; Mean Corpuscular Hemoglobin 29.8 pg (25-34); Mean Corpuscular Hgb Conc 32.5 g/dL (32-36); Mean Corpuscular Volume 91.8 fL (80-100); Mean Platelet Volume 9.7 fL (7.4-10.4); Monocytes # (auto) 0.61 K/uL (0.11-0.59); Monocytes % (auto) 4.3 %; Neutrophils % (auto) 89.3 %; Platelet Count 371 K/uL (130-400); RDW Coefficient of Variation 12.8 % (11.5-14.5); RDW Standard Deviation 43.1 fL (36.4-46.3); Red Blood Count 3.89 M/uL (4.2-5.4); White Blood Count 14.22 K/uL (4.8-10.8)
[2021-08-03 07:52] LABS: Albumin Level 2.1 gm/dl (3.4-5.0); Calcium 7.8 mg/dl (8.5-10.1); Creatinine Clr Calc Pharmacy 101.6 ml/min; Est GFR (African American) 110.7 ml/min; Est GFR (Non-African American) 95.5 ml/min; Magnesium 2.1 mg/dl (1.8-2.4); Potassium 4.3 mmol/L (3.5-5.1)
[2021-08-03 07:55] LABS: Albumin Globulin Ratio 0.6 (0.9-2); Bilirubin,Total 0.3 mg/dl (0.2-1); Globulin 3.8 gm/dl (2.5-4.0); Phosphorus 3.4 mg/dl (2.5-4.9); Total Protein 5.9 gm/dl (6.4-8.2)
[2021-08-03] MEDS: dexAMETHasone 6 MG in SYRINGE 0 ML IV SCH ×2 (08:04→21:57)
[2021-08-03] MEDS: ENOXAPARIN INJ 40 MG/0.4 ML SYR SQ SCH (08:04)
[2021-08-03] MEDS: MULTIVITAMIN TAB PO SCH (08:04)
[2021-08-03] MEDS: MONTELUKAST SODIUM 10 MG TABLET PO SCH (08:04)
[2021-08-03] MEDS: OXYBUTYNIN CHLORIDE 5 MG TAB PO SCH ×2 (08:05→21:56)
[2021-08-03] MEDS: SACCHAROMYCES BOULARDII 250 MG CAP PO SCH ×2 (08:05→21:57)
[2021-08-03] MEDS: cefTRIAXone SODIUM 2,000 MG in DEXTROSE 5% 50 ML IV SCH (09:14)
[2021-08-03] MEDS ORDERED: FUROSEMIDE 40 MG in SYRINGE 0 ML IV ONE (15:54)
--- NOTE | 2021-08-03 15:54 | Hospitalist Progress Note ---
Date of Service August 03, 2021 Assessment & Plan (1) Acute hypoxemic respiratory failure: Plan: Present on admission with worsening SOB Testing positive for COVID 19 on 07/24/2021 and also on 07/30/2021 with worsening symptoms Patient was not vaccinated Symptoms have been going on for more than 10 days CXR showed Progressively worsened right greater than left ill-defined bilateral airspace opacities compatible with multifocal pneumonia. Pt was dexamethasone 6 mg IV daily and remdesivir Continue monitor LFT while on Remdesivir Normal Procalcitonin and lactic acid CRP level was not terribly high-6.15 and then decreased to 4.37 as of 08/02/2021 Blood cx no growth Continue supportive care with nebs, flutter valve, incentive spirometer Encourage pt to prone Pulmonology on board-appreciate input and recommendation Patient does not qualify for tocilizumab therapy at this time as her CRP is only 6.15. Pulmonology recommend to increase dexamethasone to 6 mg twice daily for the next 2 to 3 days Will give Lasix 40 mg today Still requiring 4 L of oxygen to maintain saturation Advised to move around in the room and will ask for PT and OT evaluation We will get it to a 2 step O2 saturation before discharge tomorrow if she feels well following PT and OT evaluation DVT prophylaxis. Lovenox subcu Full code (2) Pneumonia due to COVID-19 virus: Plan: As above Admission and Anticipated Discharge Date Admission Date: July 30, 2021 Subjective 08/02/2021 The patient was seen and examined in telemetry unit and in the Covid room She has been requiring high flow oxygen to maintain saturation Has been conversing normally with mild to moderate shortness of breath at rest Denies any abdominal pain, nausea and or vomiting 08/03/2021 The patient was seen and examined in telemetry unit and in the Covid room She has been feeling much better clinically Oxygen requirements has gone down to 4 L/min via nasal cannula to maintain saturation Denies any fever and/or chills Review of Systems Review of Systems: All systems reviewed and are unremarkable except as noted below Respiratory: Moderate shortness of breath at rest with cough Physical Exam Physical Exam: Lying in bed with moderate shortness of breath at rest Constitutional: well developed, well nourished, + ill appearing and + obese Eyes: PERRL, conjunctivae normal, anicteric sclerae ENMT: external ear and nose normal, oropharynx normal Neck: trachea midline, no thyromegaly Respiratory: + respiratory distress, + labored breathing, + uses accessory muscles and + cough Auscultation: + diminished lung sounds, + crackles and + wheezes Cardiovascular: Rate/Rhythm: regular rate and regular rhythm; not tachycardic Heart Sounds: normal S1 and normal S2; no murmur Extremities: + edema (Trace edema bilateral) Gastrointestinal (Abdomen): Inspection/Auscultation: normal bowel sounds; abdomen not distended Percussion/Palpation: abdomen soft; abdomen nontender Musculoskeletal: No acute arthritis in any joint Neurologic: Alert, awake and oriented x3. Generally weak but no focal sensory or motor deficit appreciated Psychiatric: A+Ox3, euthymic affect Lymphatic: no cervical or axillary lymphadenopathy Results & Data Results & Data ([facility]) Vital Signs (Past 12 Hours) Vital Signs Temp Pulse Pulse Pulse Resp BP Pulse Ox 08/03/21 12:09 36.6 C 55 L 17 121/57 L 97 08/03/21 10:52 54 L 16 96 08/03/21 08:00 36.8 C 62 63 18 125/74 95 08/03/21 07:26 78 16 93 Laboratory Results Short CBC 08/03/21 Range/Units 06:46 WBC 14.22 H (4.8-10.8) K/uL Hgb 11.6 L (12.0-16.0) g/dL Hct 35.7 L (37-47) % Plt Count 371 (130-400) K/uL BMP 08/03/21 06:46 Sodium 137 Potassium 4.3 Chloride 103 Carbon Dioxide 30 BUN 17 Creatinine 0.70 Glucose 128 H Calcium 7.8 L Liver Function 08/03/21 Range/Units 06:46 Total Bilirubin 0.3 (0.2-1) mg/dl AST 14 L (15-37) U/L ALT 38 (12-78) U/L Alkaline Phosphatase 46 (45-117) U/L Albumin 2.1 L (3.4-5.0) gm/dl Medications Administered Current Inpatient Medications Acetaminophen (Acetaminophen 325 Mg Tab) 650 mg PO Q4H PRN PRN Reason: Pain or Fever Stop: 08/29/21 06:49 Last Admin: 08/01/21 04:48 Dose: 650 mg Documented by: Albuterol (Albuterol Hfa 8 Gm Inhaler) 2 puffs INH Q4H PRN PRN Reason: Shortness Of Breath Or Wheezin Stop: 08/30/21 15:17 Enoxaparin Sodium (Enoxaparin Inj 40 Mg/0.4 Ml Syr) 40 mg SQ QAM [facility] Stop: 08/29/21 08:59 Last Admin: 08/03/21 08:04 Dose: 40 mg Documented by: Promethazine HCl 12.5 mg/ (Sodium Chloride) 50.5 mls @ 202 mls/hr IV Q6H PRN PRN Reason: Nausea And Vomiting Stop: 08/29/21 06:49 Ceftriaxone Sodium 2,000 mg/ (Dextrose) 70 mls @ 140 mls/hr IV Q24H [facility]; Protocol Stop: 08/06/21 08:59 Last Infusion: 08/03/21 10:05 Dose: Infused Documented by: Dexamethasone 6 mg/ Syringe 1.5 mls @ 1 mls/min IV BID [facility] Stop: 09/01/21 00:00 Last Admin: 08/03/21 08:04 Dose: 1 mls/min Documented by: Montelukast Sodium (Montelukast Sodium 10 Mg Tablet) 10 mg PO DAILY [facility] Stop: 08/29/21 08:59 Last Admin: 08/03/21 08:04 Dose: 10 mg Documented by: Multivitamins (Multivitamin Tab) 1 tab PO DAILY [facility] Stop: 08/29/21 08:59 Last Admin: 08/03/21 08:04 Dose: 1 tab Documented by: Oxybutynin Chloride (Oxybutynin Chloride 5 Mg Tab) 5 mg PO BID [facility] Stop: 08/29/21 08:59 Last Admin: 08/03/21 08:05 Dose: 5 mg Documented by: Oxycodone HCl (Oxycodone Hcl Ir 5 Mg Tab (Immediate Release)) 5 mg PO Q4H PRN PRN Reason: Pain Stop: 08/13/21 06:49 Last Admin: 07/31/21 02:04 Dose: 5 mg Documented by: Pantoprazole Sodium (Pantoprazole 40 Mg Tab) 40 mg PO DAILYBB [facility] Stop: 08/29/21 06:49 Last Admin: 08/03/21 05:43 Dose: 40 mg Documented by: Saccharomyces Boulardii (Saccharomyces Boulardii 250 Mg Cap) 250 mg PO BID [facility] Stop: 08/29/21 08:59 Last Admin: 08/03/21 08:05 Dose: 250 mg Documented by:
[2021-08-03] MEDS ORDERED: FUROSEMIDE 40 MG/4 ML VIAL IV ONE (16:00)
[2021-08-04] MEDS: PANTOprazole 40 MG TAB PO SCH (05:48)
[2021-08-04 08:02] LABS: BUN Creatinine Ratio 27.9 (10-20); Calcium 7.9 mg/dl (8.5-10.1); Creatinine Clr Calc Pharmacy 107.2 ml/min; Est GFR (African American) 112.9 ml/min; Est GFR (Non-African American) 97.4 ml/min; Phosphorus 3.4 mg/dl (2.5-4.9); Potassium 3.9 mmol/L (3.5-5.1)
[2021-08-04] MEDS: MONTELUKAST SODIUM 10 MG TABLET PO SCH (09:26)
[2021-08-04] MEDS: SACCHAROMYCES BOULARDII 250 MG CAP PO SCH ×2 (09:26→20:19)
[2021-08-04] MEDS: OXYBUTYNIN CHLORIDE 5 MG TAB PO SCH ×2 (09:26→20:19)
[2021-08-04] MEDS: MULTIVITAMIN TAB PO SCH (09:26)
[2021-08-04] MEDS: ENOXAPARIN INJ 40 MG/0.4 ML SYR SQ SCH (09:27)
[2021-08-04] MEDS: dexAMETHasone 6 MG in SYRINGE 0 ML IV SCH ×2 (09:28→20:19)
[2021-08-04] MEDS: cefTRIAXone SODIUM 2,000 MG in DEXTROSE 5% 50 ML IV SCH (09:35)
[2021-08-04] MEDS ORDERED: FUROSEMIDE 40 MG in SYRINGE 0 ML IV ONE (15:26)
--- NOTE | 2021-08-04 15:26 | Hospitalist Progress Note ---
Date of Service August 04, 2021 Assessment & Plan (1) Acute hypoxemic respiratory failure: Plan: Present on admission with worsening SOB Testing positive for COVID 19 on 07/24/2021 and also on 07/30/2021 with worsening symptoms Patient was not vaccinated Symptoms have been going on for more than 10 days CXR showed Progressively worsened right greater than left ill-defined bilateral airspace opacities compatible with multifocal pneumonia. Pt was dexamethasone 6 mg IV daily and remdesivir Continue monitor LFT while on Remdesivir Normal Procalcitonin and lactic acid CRP level was not terribly high-6.15 and then decreased to 4.37 as of 08/02/2021 Blood cx no growth Continue supportive care with nebs, flutter valve, incentive spirometer Encourage pt to prone Pulmonology on board-appreciate input and recommendation Patient does not qualify for tocilizumab therapy at this time as her CRP is only 6.15. Pulmonology recommend to increase dexamethasone to 6 mg twice daily for the next 2 to 3 days Received a dose of 40 mg Lasix yesterday and will give another dose today Still requiring 4 L of oxygen to maintain saturation Advised to move around in the room and will ask for PT and OT evaluation Will need to do steps O2 saturation test before discharge, if stable tomorrow DVT prophylaxis. Lovenox subcu Full code (2) Pneumonia due to COVID-19 virus: Plan: As above Admission and Anticipated Discharge Date Admission Date: July 30, 2021 Subjective 08/02/2021 The patient was seen and examined in telemetry unit and in the Covid room She has been requiring high flow oxygen to maintain saturation Has been conversing normally with mild to moderate shortness of breath at rest Denies any abdominal pain, nausea and or vomiting 08/03/2021 The patient was seen and examined in telemetry unit and in the Covid room She has been feeling much better clinically Oxygen requirements has gone down to 4 L/min via nasal cannula to maintain saturation Denies any fever and/or chills 08/04/2021 The patient was seen and examined in telemetry unit and in the Covid room She has been feeling much better but is still requiring about 4 L of oxygen to maintain saturation She was strongly advised to move around in the room She has cough without any phlegm, no chest pain or palpitation, no fever and no chills Review of Systems Review of Systems: All systems reviewed and are unremarkable except as noted below Respiratory: Minimal shortness of breath at rest with cough Physical Exam Physical Exam: Lying in bed with moderate shortness of breath at rest Constitutional: well developed, well nourished, + ill appearing and + obese Eyes: PERRL, conjunctivae normal, anicteric sclerae ENMT: external ear and nose normal, oropharynx normal Neck: trachea midline, no thyromegaly Respiratory: + labored breathing and + cough; no respiratory distress and does not use accessory muscles Auscultation: + diminished lung sounds, + crackles and + wheezes Cardiovascular: Rate/Rhythm: regular rate and regular rhythm; not tachycardic Heart Sounds: normal S1 and normal S2; no murmur Extremities: + edema (Trace edema bilateral) Gastrointestinal (Abdomen): Inspection/Auscultation: normal bowel sounds; abdomen not distended Percussion/Palpation: abdomen soft; abdomen nontender Neurologic: Alert, awake and oriented x3. No focal sensory no motor deficit appreciated Psychiatric: A+Ox3, euthymic affect Lymphatic: no cervical or axillary lymphadenopathy Results & Data Results & Data ([facility]) Vital Signs (Past 12 Hours) Vital Signs Temp Pulse Pulse Resp BP Pulse Ox 08/04/21 11:59 37.0 C 18 157/77 H 08/04/21 08:36 37.0 C 62 19 110/63 94 08/04/21 07:50 49 L 08/04/21 03:57 36.8 C 53 L 18 113/71 96 Laboratory Results [facility] 08/04/21 06:46 Sodium 132 L Potassium 3.9 Chloride 97 L Carbon Dioxide 27 BUN 18 Creatinine 0.66 Glucose 132 H Calcium 7.9 L Medications Administered Current Inpatient Medications Acetaminophen (Acetaminophen 325 Mg Tab) 650 mg PO Q4H PRN PRN Reason: Pain or Fever Stop: 08/29/21 06:49 Last Admin: 08/01/21 04:48 Dose: 650 mg Documented by: Albuterol (Albuterol Hfa 8 Gm Inhaler) 2 puffs INH Q4H PRN PRN Reason: Shortness Of Breath Or Wheezin Stop: 08/30/21 15:17 Enoxaparin Sodium (Enoxaparin Inj 40 Mg/0.4 Ml Syr) 40 mg SQ QAM [facility] Stop: 08/29/21 08:59 Last Admin: 08/04/21 09:27 Dose: 40 mg Documented by: Promethazine HCl 12.5 mg/ (Sodium Chloride) 50.5 mls @ 202 mls/hr IV Q6H PRN PRN Reason: Nausea And Vomiting Stop: 08/29/21 06:49 Ceftriaxone Sodium 2,000 mg/ (Dextrose) 70 mls @ 140 mls/hr IV Q24H [facility]; Protocol Stop: 08/06/21 08:59 Last Infusion: 08/04/21 10:05 Dose: Infused Documented by: Dexamethasone 6 mg/ Syringe 1.5 mls @ 1 mls/min IV BID [facility] Stop: 09/01/21 00:00 Last Admin: 08/04/21 09:28 Dose: 1 mls/min Documented by: Montelukast Sodium (Montelukast Sodium 10 Mg Tablet) 10 mg PO DAILY [facility] Stop: 08/29/21 08:59 Last Admin: 08/04/21 09:26 Dose: 10 mg Documented by: Multivitamins (Multivitamin Tab) 1 tab PO DAILY [facility] Stop: 08/29/21 08:59 Last Admin: 08/04/21 09:26 Dose: 1 tab Documented by: Oxybutynin Chloride (Oxybutynin Chloride 5 Mg Tab) 5 mg PO BID [facility] Stop: 08/29/21 08:59 Last Admin: 08/04/21 09:26 Dose: 5 mg Documented by: Oxycodone HCl (Oxycodone Hcl Ir 5 Mg Tab (Immediate Release)) 5 mg PO Q4H PRN PRN Reason: Pain Stop: 08/13/21 06:49 Last Admin: 07/31/21 02:04 Dose: 5 mg Documented by: Pantoprazole Sodium (Pantoprazole 40 Mg Tab) 40 mg PO DAILYBB [facility] Stop: 08/29/21 06:49 Last Admin: 08/04/21 05:48 Dose: 40 mg Documented by: Saccharomyces Boulardii (Saccharomyces Boulardii 250 Mg Cap) 250 mg PO BID [facility] Stop: 08/29/21 08:59 Last Admin: 08/04/21 09:26 Dose: 250 mg Documented by:
[2021-08-04] MEDS ORDERED: FUROSEMIDE 40 MG/4 ML VIAL IV ONE (15:30)
[2021-08-04] MEDS ORDERED: FUROSEMIDE 40 MG/4 ML VIAL IV SCH (17:45)
[2021-08-05] MEDS: PANTOprazole 40 MG TAB PO SCH (05:57)
[2021-08-05 08:34] LABS: Basophils # (auto) 0.01 K/uL (0-0.2); Basophils % (auto) 0.1 %; Eosinophils # (auto) 0.02 K/uL (0-0.5); Eosinophils % (auto) 0.2 %; Hemoglobin 12.6 g/dL (12.0-16.0); Immature Granulocytes # (auto) 0.18 K/uL (0.00-0.02); Immature Granulocytes % (auto) 1.4 %; Lymphocytes # (auto) 1.44 K/uL (1.2-3.4); Lymphocytes % (auto) 11.3 %; Mean Corpuscular Hemoglobin 29.8 pg (25-34); Mean Corpuscular Hgb Conc 33.2 g/dL (32-36); Mean Corpuscular Volume 89.8 fL (80-100); Mean Platelet Volume 9.7 fL (7.4-10.4); Monocytes # (auto) 0.55 K/uL (0.11-0.59); Monocytes % (auto) 4.3 %; Neutrophils # (auto) 10.55 K/uL (1.4-6.5); Neutrophils % (auto) 82.7 %; Platelet Count 475 K/uL (130-400); RDW Coefficient of Variation 12.5 % (11.5-14.5); RDW Standard Deviation 41.3 fL (36.4-46.3); Red Blood Count 4.23 M/uL (4.2-5.4); White Blood Count 12.75 K/uL (4.8-10.8)
[2021-08-05] MEDS: MONTELUKAST SODIUM 10 MG TABLET PO SCH (08:34)
[2021-08-05] MEDS: SACCHAROMYCES BOULARDII 250 MG CAP PO SCH (08:35)
[2021-08-05] MEDS: MULTIVITAMIN TAB PO SCH (08:35)
[2021-08-05] MEDS: OXYBUTYNIN CHLORIDE 5 MG TAB PO SCH (08:36)
[2021-08-05] MEDS: dexAMETHasone 6 MG in SYRINGE 0 ML IV SCH (08:36)
[2021-08-05] MEDS: ENOXAPARIN INJ 40 MG/0.4 ML SYR SQ SCH (08:38)
[2021-08-05 08:56] LABS: BUN Creatinine Ratio 26.8 (10-20); Calcium 8.1 mg/dl (8.5-10.1); Creatinine Clr Calc Pharmacy 89.3 ml/min; Est GFR (African American) 97.1 ml/min; Est GFR (Non-African American) 83.8 ml/min; Magnesium 2.5 mg/dl (1.8-2.4); Phosphorus 3.2 mg/dl (2.5-4.9); Potassium 3.8 mmol/L (3.5-5.1)
[2021-08-05] MEDS: cefTRIAXone SODIUM 2,000 MG in DEXTROSE 5% 50 ML IV SCH (09:00)
--- NOTE | 2021-08-05 12:19 | Hospitalist Progress Note ---
Date of Service August 05, 2021 Assessment & Plan (1) Acute hypoxemic respiratory failure: Plan: Present on admission with worsening SOB Testing positive for COVID 19 on 07/24/2021 and also on 07/30/2021 with worsening symptoms Patient was not vaccinated Symptoms have been going on for more than 10 days CXR showed Progressively worsened right greater than left ill-defined bilateral airspace opacities compatible with multifocal pneumonia. Pt was dexamethasone 6 mg IV daily and remdesivir Continue monitor LFT while on Remdesivir Normal Procalcitonin and lactic acid CRP level was not terribly high-6.15 and then decreased to 4.37 as of 08/02/2021 Blood cx no growth Continue supportive care with nebs, flutter valve, incentive spirometer Encourage pt to prone Pulmonology on board-appreciate input and recommendation Patient does not qualify for tocilizumab therapy at this time as her CRP is only 6.15. Pulmonology recommend to increase dexamethasone to 6 mg twice daily for the next 2 to 3 days Received a dose of 40 mg Lasix yesterday and will give another dose today Still requiring 4 L of oxygen to maintain saturation Did very well with PT and OT evaluation Oxygen requirements has come down below to 2 L and she has been feeling much better We will get a 2 steps O2 saturation test prior to discharge this afternoon DVT prophylaxis. Lovenox subcu Full code (2) Pneumonia due to COVID-19 virus: Plan: As above Admission and Anticipated Discharge Date Admission Date: July 30, 2021 Subjective 08/02/2021 The patient was seen and examined in telemetry unit and in the Covid room She has been requiring high flow oxygen to maintain saturation Has been conversing normally with mild to moderate shortness of breath at rest Denies any abdominal pain, nausea and or vomiting 08/03/2021 The patient was seen and examined in telemetry unit and in the Covid room She has been feeling much better clinically Oxygen requirements has gone down to 4 L/min via nasal cannula to maintain saturation Denies any fever and/or chills 08/04/2021 The patient was seen and examined in telemetry unit and in the Covid room She has been feeling much better but is still requiring about 4 L of oxygen to maintain saturation She was strongly advised to move around in the room She has cough without any phlegm, no chest pain or palpitation, no fever and no chills 08/05/2021 The patient was seen and examined in telemetry unit and in the Covid room She has been feeling lot better today and has been requiring 0 to 2 L of oxygen to maintain saturation Still has cough but denies any fever and no chills No significant weakness Review of Systems Review of Systems: All systems reviewed and are unremarkable except as noted below Respiratory: Minimal shortness of breath at rest with cough Physical Exam Physical Exam: Lying in bed with moderate shortness of breath at rest Constitutional: well developed, well nourished, + ill appearing and + obese Eyes: PERRL, conjunctivae normal, anicteric sclerae ENMT: external ear and nose normal, oropharynx normal Neck: trachea midline, no thyromegaly Respiratory: + cough; no respiratory distress, no labored breathing and does not use accessory muscles Auscultation: + diminished lung sounds, + crackles and + wheezes Wheezing and crackles are almost gone Cardiovascular: Rate/Rhythm: regular rate and regular rhythm; not tachycardic Heart Sounds: normal S1 and normal S2; no murmur Extremities: + edema (Trace edema bilateral) Gastrointestinal (Abdomen): Inspection/Auscultation: normal bowel sounds; abdomen not distended Percussion/Palpation: abdomen soft; abdomen nontender Musculoskeletal: No acute arthritis involving any joint Neurologic: Alert, awake and oriented x3. No focal sensory and motor deficit appreciated Psychiatric: A+Ox3, euthymic affect Lymphatic: no cervical or axillary lymphadenopathy Results & Data Results & Data ([facility]) Vital Signs (Past 12 Hours) Vital Signs Temp Pulse Pulse Pulse Resp BP Pulse Ox 08/05/21 11:50 37.2 C 65 24 118/67 97 08/05/21 11:16 08/05/21 10:18 58 L 08/05/21 10:06 08/05/21 07:59 37.1 C 58 L 16 122/66 92 08/05/21 03:25 36.3 C L 65 16 112/59 L 93 Pulse Ox Pulse Ox Pulse Ox Pulse Ox 08/05/21 11:50 08/05/21 11:16 91 96 85 L 08/05/21 10:18 08/05/21 10:06 90 08/05/21 07:59 08/05/21 03:25 Laboratory Results Short CBC 08/05/21 Range/Units 08:09 WBC 12.75 H (4.8-10.8) K/uL Hgb 12.6 (12.0-16.0) g/dL Hct 38.0 (37-47) % Plt Count 475 H (130-400) K/uL BMP 08/05/21 08:09 Sodium 131 L Potassium 3.8 Chloride 96 L Carbon Dioxide 27 BUN 21 H Creatinine 0.78 Glucose 116 H Calcium 8.1 L Medications Administered Current Inpatient Medications Acetaminophen (Acetaminophen 325 Mg Tab) 650 mg PO Q4H PRN PRN Reason: Pain or Fever Stop: 08/29/21 06:49 Last Admin: 08/01/21 04:48 Dose: 650 mg Documented by: Albuterol (Albuterol Hfa 8 Gm Inhaler) 2 puffs INH Q4H PRN PRN Reason: Shortness Of Breath Or Wheezin Stop: 08/30/21 15:17 Enoxaparin Sodium (Enoxaparin Inj 40 Mg/0.4 Ml Syr) 40 mg SQ QAM [facility] Stop: 08/29/21 08:59 Last Admin: 08/05/21 08:38 Dose: 40 mg Documented by: Furosemide (Furosemide 40 Mg/4 Ml Vial) 40 mg IV 1245 [facility] Stop: 08/05/21 16:00 Last Admin: 08/05/21 13:01 Dose: 40 mg Documented by: Promethazine HCl 12.5 mg/ (Sodium Chloride) 50.5 mls @ 202 mls/hr IV Q6H PRN PRN Reason: Nausea And Vomiting Stop: 08/29/21 06:49 Ceftriaxone Sodium 2,000 mg/ (Dextrose) 70 mls @ 140 mls/hr IV Q24H [facility]; Protocol Stop: 08/06/21 08:59 Last Infusion: 08/05/21 09:40 Dose: Infused Documented by: Dexamethasone 6 mg/ Syringe 1.5 mls @ 1 mls/min IV BID [facility] Stop: 09/01/21 00:00 Last Admin: 08/05/21 08:36 Dose: 1 mls/min Documented by: Montelukast Sodium (Montelukast Sodium 10 Mg Tablet) 10 mg PO DAILY [facility] Stop: 08/29/21 08:59 Last Admin: 08/05/21 08:34 Dose: 10 mg Documented by: Multivitamins (Multivitamin Tab) 1 tab PO DAILY [facility] Stop: 08/29/21 08:59 Last Admin: 08/05/21 08:35 Dose: 1 tab Documented by: Oxybutynin Chloride (Oxybutynin Chloride 5 Mg Tab) 5 mg PO BID [facility] Stop: 08/29/21 08:59 Last Admin: 08/05/21 08:36 Dose: 5 mg Documented by: Oxycodone HCl (Oxycodone Hcl Ir 5 Mg Tab (Immediate Release)) 5 mg PO Q4H PRN PRN Reason: Pain Stop: 08/13/21 06:49 Last Admin: 07/31/21 02:04 Dose: 5 mg Documented by: Pantoprazole Sodium (Pantoprazole 40 Mg Tab) 40 mg PO DAILYBB [facility] Stop: 08/29/21 06:49 Last Admin: 08/05/21 05:57 Dose: 40 mg Documented by: Saccharomyces Boulardii (Saccharomyces Boulardii 250 Mg Cap) 250 mg PO BID [facility] Stop: 08/29/21 08:59 Last Admin: 08/05/21 08:35 Dose: 250 mg Documented by:
[2021-08-05] MEDS ORDERED: FUROSEMIDE 40 MG in SYRINGE 0 ML IV ONE (12:28)
[2021-08-05] MEDS ORDERED: FUROSEMIDE 40 MG/4 ML VIAL IV SCH (12:45)
--- NOTE | 2021-08-05 17:22 | Discharge Summary ---
Date of Service August 05, 2021 Admission HPI Per Admitting Provider History obtained from patient and records. Medical history significant for asthma, GERD, prediabetes, anxiety, past tobacco abuse. 10 days history of dry cough symptoms, fever, chills. Patient and exposed to sick neighbors with COVID-19. Both patient and have not received COVID-19 vaccination. Patient seen at the ER 6 days ago. COVID-19 test was positive. Patient not hypoxemic during ER stay. CT chest no PE. Mild to moderate multifocal groundglass opacities consistent with viral pneumonia. Patient discharged on oral Decadron and cefdinir course. Worsening symptoms despite compliance with medications. Chest pain with coughing. Patient return to the ER for evaluation. O2 sats 80s on room air. Medical History as above Surgical History : Cystoscopy, hysteroscopy, BTL, phlebectomy Family History : Asthma, colon cancer, heart disease, stroke Personal/Social history : Past tobacco abuse, occasional EtOH intake, printing work Admission Exam Per Admitting Provider Physical Exam: GENERAL: uncomfortable, wane, slightly anxious, dysphonic, obese, minimal respi ratory distress SKIN: Normal color, warm HEENT: [place] palpebral conjunctivae, no ptosis, dry buccal mucosa, O2 mask in place NECK : Supple, no tenderness CHEST : Decreased breath sounds, no tenderness HEART : RRR, no obvious murmurs ABDOMEN: Some distention, nontender EXTREMITIES : Minimal LE swelling, no LE tenderness, no other conspicuous deformities noted NEUROLOGIC : Coherent, no facial asymmetry, no other gross focality Principal Diagnosis Acute hypoxic respiratory failure, COVID-19 infection with pneumonia Discharge Exam Constitutional well developed, well nourished, + ill appearing and + obese Eyes PERRL, conjunctivae normal, anicteric sclerae ENMT external ear and nose normal, oropharynx normal Neck trachea midline, no thyromegaly Respiratory + cough; no respiratory distress, no labored breathing and does not use accessory muscles Auscultation: + diminished lung sounds, + crackles and + wheezes Cardiovascular Rate/Rhythm: regular rate and regular rhythm; not tachycardic Heart Sounds: normal S1 and normal S2; no murmur Extremities: + edema (Trace edema bilateral) Gastrointestinal (Abdomen) Inspection/Auscultation: normal bowel sounds; abdomen not distended Percussion/Palpation: abdomen soft; abdomen nontender Psychiatric A+Ox3, euthymic affect Lymphatic no cervical or axillary lymphadenopathy Discharge Data Allergies Allergy/AdvReac Type Severity Reaction Status Date / Time sulfamethoxazole [Bactrim] Allergy Intermediate rash and Verified 07/30/21 01:24 upset stomach trimethoprim [Bactrim] Allergy Intermediate rash and Verified 07/30/21 01:24 upset stomach Penicillins Allergy Mild Unknown Unverified 07/30/21 01:24 Consultations 07/30/21 03:46 ED Decision to Admit Stat 08/01/21 07:57 Consult Pulmonology Routine Hospital Course (1) Acute hypoxemic respiratory failure: Present on admission with worsening SOB Testing positive for COVID 19 on 07/24/2021 and also on 07/30/2021 with worsening symptoms Patient was not vaccinated Symptoms have been going on for more than 10 days CXR showed Progressively worsened right greater than left ill-defined bilateral airspace opacities compatible with multifocal pneumonia. Pt was dexamethasone 6 mg IV daily and remdesivir Continue monitor LFT while on Remdesivir Normal Procalcitonin and lactic acid CRP level was not terribly high-6.15 and then decreased to 4.37 as of 08/02/2021 Blood cx no growth Continue supportive care with nebs, flutter valve, incentive spirometer Encourage pt to prone Pulmonology on board-appreciate input and recommendation Patient does not qualify for tocilizumab therapy at this time as her CRP is only 6.15. Pulmonology recommend to increase dexamethasone to 6 mg twice daily for the next 2 to 3 days Received a dose of 40 mg Lasix yesterday and will give another dose today Still requiring 4 L of oxygen to maintain saturation Did very well with PT and OT evaluation Oxygen requirements has come down below to 2 L and she has been feeling much better We will get a 2 steps O2 saturation test prior to discharge this afternoon DVT prophylaxis. Lovenox subcu Full code (2) Pneumonia due to COVID-19 virus: As above Total Time Total Time Spent Total Time Spent (In Minutes): 35 minutes Discharge Plan Discharge Items Patient Disposition: Home - Self-Care Reason For Visit: RESPIRATORY FAILURE Discharge Diagnosis: Acute hypoxic respiratory failure, COVID-19 infection with pneumonia Condition on Discharge: Fair Activity: Resume your previous activity Activity Comment: Take it easy for the next few weeks Non-emergency contact: Primary Care Provider Call non-emergency contact if: you have any medication questions and your symptoms worsen Follow-up/Referrals: Richardson Lopez MD [Primary Care Provider] - (Will call you tomorrow with an appointment within 7 days with your primary care physician) Diet: Regular Addtl Attending Provider Instructions: Please take precautions to avoid fall Use your oxygen as advised with ambulation You will need to maintain isolation until 24th of this month as per guideline below. After that you will be following the normal precautions as per CDC Please get your Covid vaccine after you have followed up with your PCP Home Isolation COVID-19 Instructions The following information about Home Isolation is from the CDC Website: https://www.cdc.gov/coronavirus/2019-ncov/hcp/rhfyadge-fkscuce-fbygly.html Stay home except to get medical care People who are mildly ill with COVID-19 are able to isolate at home during their illness. You should restrict activities outside your home, except for getting medical care. Do not go to work, school, or public areas. Avoid using public transportation, ride-sharing, or taxis. Separate yourself from other people and animals in your home People: As much as possible, you should stay in a specific room and away from other people in your home. Also, you should use a separate bathroom, if available. Animals: You should restrict contact with pets and other animals while you are sick with COVID-19, just like you would around other people. Although there have not been reports of pets or other animals becoming sick with COVID-19, it is still recommended that people sick with COVID-19 limit contact with animals until more information is known about the virus. When possible, have another member of your household care for your animals while you are sick. If you are sick with COVID-19, avoid contact with your pet, including petting, snuggling, being kissed or licked, and sharing food. If you must care for your pet or be around animals while you are sick, wash your hands before and after you interact with pets and wear a face mask. Call ahead before visiting your doctor If you have a medical appointment, call the healthcare provider and tell them that you have or may have COVID-19. This will help the healthcare providers office take steps to keep other people from getting infected or exposed. Wear a face mask You should wear a face mask when you are around other people (e.g., sharing a room or vehicle) or pets and before you enter a healthcare providers office. If you are not able to wear a face mask (for example, because it causes trouble breathing), then people who live with you should not stay in the same room with you, or they should wear a face mask if they enter your room. Cover your coughs and sneezes Cover your mouth and nose with a tissue when you cough or sneeze. Throw used tissues in a lined trash can. Immediately wash your hands with soap and water for at least 20 seconds or, if soap and water are not available, clean your hands with an alcohol-based hand parking enforcement officer that contains at least 60% alcohol. Clean your hands often Wash your hands often with soap and water for at least 20 seconds, especially after blowing your nose, coughing, or sneezing; going to the bathroom; and before eating or preparing food. If soap and water are not readily available, use an alcohol-based hand parking enforcement officer with at least 60% alcohol, covering all surfaces of your hands and rubbing them together until they feel dry. Soap and water are the best option if hands are visibly dirty. Avoid touching your eyes, nose, and mouth with unwashed hands. Avoid sharing personal household items You should not share dishes, drinking glasses, cups, eating utensils, towels, or bedding with other people or pets in your home. After using these items, they should be washed thoroughly with soap and water. Clean all high-touch surfaces everyday High touch surfaces include counters, tabletops, doorknobs, bathroom fixtures, toilets, phones, keyboards, tablets, and bedside tables. Also, clean any surfaces that may have blood, stool, or body fluids on them. Use a household cleaning spray or wipe, according to the label instructions. Labels contain instructions for safe and effective use of the cleaning product including precautions you should take when applying the product, such as wearing gloves and making sure you have good ventilation during use of the product. Monitor your symptoms Seek prompt medical attention if your illness is worsening (e.g., difficulty breathing).Beforeseeking care, call your healthcare provider and tell them that you have, or are being evaluated for, COVID-19. Put on a face mask before you enter the facility. These steps will help the healthcare providers office to keep other people in the office or waiting room from getting infected or exposed. Ask your healthcare provider to call the local or state health department. Persons who are placed under active monitoring or facilitated self- monitoring should follow instructions provided by their local health department or occupational health professionals, as appropriate. When working with your local health department check their available hours. If you have a medical emergency and need to call 911, notify the dispatch personnel that you have, or are being evaluated for COVID-19. If possible, put on a face mask before emergency medical services arrive. Discontinuing home isolation Patients with confirmed COVID-19 should remain under home isolation precautions until the risk of secondary transmission to others is thought to be low. The decision to discontinue home isolation precautions should be made on a rwds-ca-decu basis, in consultation with healthcare providers and [facility] and [facility] health departments. Pending Studies at Discharge: No Stand-Alone Forms: [facility], Smoking Cessation Medications and DC Order Prescriptions: New dexamethasone 6 mg tablet 6 mg PO DAILY Qty: 4 RF: 0 Continued omeprazole 40 mg capsule,delayed release(DR/EC) 40 mg PO DAILYBB RF: 0 albuterol sulfate 90 mcg/actuation HFA aerosol inhaler 2 puff INHALATION Q4 PRN (Reason: Shortness Of Breath Or Wheezing) RF: 0 loratadine-pseudoephedrine [Allergy Relief,Nasal Decongest] 10-240 mg tablet extended release 24 hr 1 tab PO DAILY RF: 0 montelukast 10 mg tablet 10 mg PO DAILY RF: 0 oxybutynin chloride 5 mg tablet 5 mg PO BID RF: 0 multivitamin [Multiple Vitamins] Tablet 1 tab PO DAILY RF: 0 Saccharomyces boulardii [Florastor] 250 mg capsule 250 mg PO BID Qty: 20 RF: 0 Discontinued dexamethasone 6 mg tablet 6 mg PO DAILY Qty: 10 RF: 0 cefdinir 300 mg capsule 300 mg PO BID 7 Days Qty: 14 RF: 0 Discharge Orders: Discharge Order (Routine); Ordered 08/05/21 Ordered By: Nadine Simpson/Other Patient Handouts: A1C, Prediabetes, 5 Steps for Eating Healthier Admission Data Admit Date/Time: 07/30/21 02:30 Attending Provider: Nadine Larsen Admit Provider: Rusty Gardner Primary Care Provider: Richardson Lopez Other Providers: Rusty Gardner ; Moreno Branham Other Interventions: Discharge Summary Assessment (RN) Last Done: 08/05/21 16:18
== END 2021-08-05 17:17 | disposition home or self-care (01) | DRG 177 ==
LOC: ED 01:11 → SUATTDRO 02:30 → 2S 02:30